=== PATIENT | female | born 1945 | race Caucasian/White ===

== ENCOUNTER → 2016-11-18 | Outpatient (CLI) | payer OTHER | LOC: FIMAGING 15:13 | PROVIDERS: ATTEND Internal Medicine | DX: Z12.31 Encounter for screening mammogram for malignant neoplasm of breast (principal); J47.9 Bronchiectasis, uncomplicated; R91.1 Solitary pulmonary nodule; J43.9 Emphysema, unspecified; Z80.3 Family history of malignant neoplasm of breast | CPT/HCPCS: G0202 ==

== ENCOUNTER 2017-01-13 13:00 | Inpatient (IN) | payer OTHER ==
[2017-01-13 13:36] LABS: % IMMATURE GRANULYOCYTES 0.5 % (0.0-1.1); ABSOLUTE IMMATURE GRANULOCYTES 0.06 10^3/uL (0.00-0.10); ADD DIFF? NO; ADD MORPH? NO; ADD SCAN? NO; ATYPICAL LYMPHOCYTE FLAG 0 (0-99); FRAGMENT RBC FLAG 0 (0-99); HEMATOCRIT 45.6 % (38.0-47.0); HEMOGLOBIN 15.2 g/dL (12.6-16.3); LEFT SHIFT FLG 0 (0-99); LIPEMIA HEMOLYSIS FLAG 80 (0-99); MEAN CELL HEMOGLOBIN 31.3 pg (27.9-34.1); MEAN CELL HEMOGLOBIN CONCENTR. 33.3 g/dL (32.4-36.7); MEAN CELL VOLUME 93.8 fL (81.5-99.8); MEAN PLATELET VOLUME 10.6 fL (8.7-11.7); PLATELET CLUMPS FLAG 10 (0-99); PLATELET COUNT 199 10^3/uL (150-400); RED BLOOD CELL COUNT 4.86 10^6/uL (4.18-5.33); RED CELL DISTRIBUTION WIDTH 13.8 % (11.5-15.2)
[2017-01-13] MEDS ORDERED: NS 1,000 ML IV ONE ×2 (13:38→13:51)
--- NOTE | 2017-01-13 13:48 | EDPHY ---
H & P Stated Complaint: Nausea, vomiting, chills, fever, decreased appetive x 4 days Time Seen by Provider: 01/13/17 13:12 HPI/ROS: CHIEF COMPLAINT: fever HISTORY OF PRESENT ILLNESS: 71-year-old female presents to the emergency department sent from her primary care doctor's office for evaluation for fever, nausea, vomiting, weakness and cough. Patient has a 5 day history of fevers, weakness, nausea, vomiting and cough. Unable to keep any food and fluids down today. Patient also reports diarrhea that started today. She denies any blood in her stool or vomit. Patient denies chest pain or shortness of breath. She reports extreme fatigue. Patient has a history of sarcoidosis. She takes 5 mg of prednisone daily. Patient denies abdominal pain. She denies back pain. No rash. Patient denies urinary frequency, urgency or dysuria. REVIEW OF SYSTEMS: A comprehensive 10 point review of systems is otherwise negative aside from elements mentioned in the history of present illness. Source: Patient, Family Exam Limitations: No limitations - Personal History Current Tetanus/Diphtheria Vaccine: Unsure Current Tetanus Diphtheria and Acellular Pertussis (TDAP): Unsure - Medical/Surgical History Hx Asthma: No Hx Chronic Respiratory Disease: No Hx Diabetes: No Hx Cardiac Disease: No Hx Renal Disease: No Hx Cirrhosis: No Hx Alcoholism: No Hx HIV/AIDS: No Hx Splenectomy or Spleen Trauma: No Other PMH: sarcoidosis. CVA. hypothyroid - Social History Smoking Status: Former smoker - Physical Exam Exam: Physical Exam Gen: Alert and Oriented, pale HEENT: PERRL, dry mucous membranes NECK: no meningismus CV: Tachycardic rate and regular rhythm PULM: Diminished throughout ABDOMEN: soft, non tender to palpation, BS present BACK: No CVA tenderness NEURO: Neurologically grossly intact EXTREMITIES: normal appearing SKIN: No rash, multiple bruises to bilateral upper extremities PSYCH: answers questions appropriately. Constitutional: Initial Vital Signs Temperature (C) 37.2 C 01/13/17 13:03 Heart Rate 103 H 01/13/17 13:03 Respiratory Rate 16 01/13/17 13:03 Blood Pressure 89/52 L 01/13/17 13:03 O2 Sat (%) 85 L 01/13/17 13:03 O2 Delivery Mode Nasal Cannula O2 (L/minute) 2 Allergies/Adverse Reactions: hydroxychloroquine sulfate [From Plaquenil] Allergy (Severe, Verified 05/02/16 10:54) sz Penicillins Allergy (Mild, Verified 05/02/16 10:54) itchy rash Home Medications: Medication Instructions Recorded Clopidogrel Bisulfate [Plavix (*)] 75 mg PO DAILY 05/02/16 Estrogens,Conjugated [Premarin 0.3 0.3 mg PO DAILY 05/02/16 MG (*)] Levothyroxine [Synthroid 88 mcg 88 mcg PO DAILY06 05/02/16 (*)] Rosuvastatin Calcium [Crestor 20mg 20 mg PO DAILY 05/02/16 (*)] predniSONE 5 mg PO 05/02/16 Medical Decision Making - Diagnostics Imaging Results: Imaging Impressions Chest X-Ray 01/13/17 13:43 Impression: Masslike right upper lobe consolidation, new since the comparison, most likely representing pneumonia. Radiographic follow up is recommended to resolution. Findings discussed with Flower Hinds NP on January 13, 2017 at 1430 hours. Imaging: Discussed imaging studies w/ scallop dredger Radiologist ED Course/Re-evaluation: IV established, CBC, chemistry panel, blood cultures, lactic acid, chest x-ray obtained. Patient does not meet sepsis criteria. 2 L of normal saline have been ordered. Chest x-ray shows a right upper lobe pneumonia. Sodium is 129, [place] [id number]. Lactate is normal. Patient is given 1 g of Rocephin IV and 500 mg of azithromycin. She is admitted to the hospitalist for treatment of her pneumonia. Room air oxygen saturations 85%, up to 95 % on 2 liters. Blood pressure up from 89/60 after 1 L of normal saline to 130/62. Temperature up to 37.7. Patient is given 650 mg of Tylenol orally. Differential Diagnosis: The differential diagnosis for the patient's fever included but was not limited to pneumonia, urinary tract infection, viral syndrome, meningitis, and sepsis. - Data Points Laboratory Results: Laboratory Results 01/13/17 13:30 01/13/17 13:30 01/13/17 01/13/17 01/13/17 13:56 13:55 13:55 WBC RBC Hgb Hct MCV MCH MCHC RDW Plt Count MPV Neut % (Auto) Lymph % (Auto) [place] % (Auto) Eos % (Auto) Baso % (Auto) Nucleat RBC Rel Count Absolute Neuts (auto) Absolute Lymphs (auto) Absolute Monos (auto) Absolute Eos (auto) Absolute Basos (auto) Absolute Nucleated RBC Immature Gran % Immature Gran # VBG Lactic Acid Sodium Potassium Chloride Carbon Dioxide Anion Gap BUN Creatinine Estimated GFR Glucose Calcium Total Bilirubin Stool Concentration Cancelled Stool Ova & Parasites Cancelled Parasite Trichrome Cancelled C. difficile Tox (PCR) Cancelled Influenza A & B (PCR) Pending Influenza A,B Rapid Cancelled Group A Strep Screen NEGATIVE (NEGATIVE) Direct Microscop Exam Cancelled 01/13/17 01/13/17 01/13/17 13:30 13:30 13:30 WBC 11.31 10^3/uL H 10^3/uL (3.80-9.50) RBC 4.86 10^6/uL 10^6/uL (4.18-5.33) Hgb 15.2 g/dL g/dL (12.6-16.3) Hct 45.6 % % (38.0-47.0) MCV 93.8 fL fL (81.5-99.8) MCH 31.3 pg pg (27.9-34.1) MCHC 33.3 g/dL g/dL (32.4-36.7) RDW 13.8 % % (11.5-15.2) Plt Count 199 10^3/uL 10^3/uL (150-400) MPV 10.6 fL fL (8.7-11.7) Neut % (Auto) 71.7 % % (39.3-74.2) Lymph % (Auto) 10.5 % L % (15.0-45.0) [place] % (Auto) 16.8 % H % (4.5-13.0) Eos % (Auto) 0.0 % L % (0.6-7.6) Baso % (Auto) 0.5 % % (0.3-1.7) Nucleat RBC Rel Count 0.0 % % (0.0-0.2) Absolute Neuts (auto) 8.10 10^3/uL H 10^3/uL (1.70-6.50) Absolute Lymphs (auto) 1.19 10^3/uL 10^3/uL (1.00-3.00) Absolute Monos (auto) 1.90 10^3/uL H 10^3/uL (0.30-0.80) Absolute Eos (auto) 0.00 10^3/uL L 10^3/uL (0.03-0.40) Absolute Basos (auto) 0.06 10^3/uL 10^3/uL (0.02-0.10) Absolute Nucleated RBC 0.00 10^3/uL 10^3/uL (0-0.01) Immature Gran % 0.5 % % (0.0-1.1) Immature Gran # 0.06 10^3/uL 10^3/uL (0.00-0.10) VBG Lactic Acid 1.0 mmol/L mmol/L (0.7-2.1) Sodium 129 mEq/L L mEq/L (134-144) Potassium 3.6 mEq/L mEq/L (3.5-5.2) Chloride 98 mEq/L mEq/L (97-110) Carbon Dioxide 19 mEq/l L mEq/l (22-31) Anion Gap 12 mEq/L mEq/L (8-16) BUN 22 mg/dL mg/dL (7-23) Creatinine 1.0 mg/dL mg/dL (0.6-1.0) Estimated GFR 55 Glucose 114 mg/dL H mg/dL (70-100) Calcium 9.1 mg/dL mg/dL (8.5-10.4) Total Bilirubin 1.0 mg/dL mg/dL (0.1-1.4) Stool Concentration Stool Ova & Parasites Parasite Trichrome C. difficile Tox (PCR) Influenza A & B (PCR) Influenza A,B Rapid Group A Strep Screen Direct Microscop Exam Medications Given: Sodium Chloride (Ns) 1,000 mls @ 0 mls/hr IV CONT KRISTIAN PRN Reason: TKO Stop: 07/12/17 14:44 Last Admin: 01/13/17 14:54 Dose: 1,000 mls Ceftriaxone Sodium/Dextrose (Rocephin 1 Gm (Premix)) 50 mls @ 100 mls/hr IV EDNOW ONE PRN Reason: Protocol Stop: 01/13/17 15:14 Last Admin: 01/13/17 14:53 Dose: 50 mls Discontinued Medications Acetaminophen (Tylenol) 650 mg PO EDNOW ONE Stop: 01/13/17 14:29 Last Admin: 01/13/17 14:32 Dose: Not Given Sodium Chloride (Ns) 1,000 mls @ 0 mls/hr IV ONCE ONE PRN Reason: Wide Open Stop: 01/13/17 13:39 Last Admin: 01/13/17 13:44 Dose: 1,000 mls Sodium Chloride (Ns) 1,000 mls @ 0 mls/hr IV EDNOW ONE; Wide Open PRN Reason: Protocol Stop: 01/13/17 13:52 Last Admin: 01/13/17 14:11 Dose: 1,000 mls Ondansetron HCl (Zofran) 4 mg IVP EDNOW ONE Stop: 01/13/17 13:56 Last Admin: 01/13/17 14:11 Dose: 4 mg Departure - Departure Disposition: [facility] Acute Clinical Impression: Right upper lobe pneumonia Qualifiers: Pneumonia type: due to unspecified organism Qualified Code(s): J18.1 - Lobar pneumonia, unspecified organism Condition: Fair
[2017-01-13] MEDS ORDERED: ONDANSETRON 4 MG/2 ML VIAL IVP ONE (13:55)
[2017-01-13] MEDS ORDERED: ONDANSETRON 4 MG/2 ML VIAL ONE (13:55)
[2017-01-13 13:57] LABS: CALCIUM 9.1 mg/dL (8.5-10.4); CARBON DIOXIDE 19 mEq/l (22-31); CHLORIDE 98 mEq/L (97-110); GLOMERULAR FILTRATION RATE 55; GLUCOSE 114 mg/dL (70-100); SODIUM 129 mEq/L (134-144)
[2017-01-13 13:57] LABS: INR 1.08 (0.83-1.16); PROTIME(PATIENT) 13.9 SEC (12.0-15.0)
[2017-01-13 13:58] LABS: APTT 31.1 SEC (23.0-38.0)
[2017-01-13 13:59] LABS: ANION GAP 12 mEq/L (8-16); POTASSIUM 3.6 mEq/L (3.5-5.2)
[2017-01-13] MEDS ORDERED: ACETAMINOPHEN 325 MG TAB PO ONE (14:28)
[2017-01-13] MEDS ORDERED: NS 1,000 ML IV SCH (14:45)
[2017-01-13] MEDS ORDERED: AZITHROMYCIN IV 500 MG in D5W 250 ML IV ONE (14:46)
[2017-01-13] MEDS ORDERED: PROMETHAZINE HCL 25 MG TAB PO PRN (16:00)
[2017-01-13] MEDS ORDERED: ONDANSETRON 4 MG/2 ML VIAL IVP PRN (16:00)
[2017-01-13] MEDS ORDERED: ACETAMINOPHEN 325 MG TAB PO PRN (16:00)
[2017-01-13] MEDS ORDERED: ALBUTEROL 3 ML DEYVIAL IH PRN (16:00)
[2017-01-13] MEDS ORDERED: ONDANSETRON DISINTEGRATING 4 MG TAB PO PRN (16:00)
[2017-01-13] MEDS: NS W/ 20 KCl/L 1,000 ML IV SCH (16:39)
[2017-01-13] MEDS: VANCOMYCIN 125 MG/2.5 ML UDL PO SCH ×2 (16:42→19:38)
[2017-01-13] MEDS: predniSONE 5 MG TAB PO SCH (16:42)
--- NOTE | 2017-01-13 17:26 | GHP ---
[f rep st] HISTORY AND PHYSICAL DATE OF ADMISSION: 01/13/2017 CHIEF COMPLAINT: Fever, cough, nausea, vomiting, diarrhea, and weakness. HISTORY OF PRESENT ILLNESS: The patient is a 71-year-old female with history of sarcoid, bronchiectasis, and chronic prednisone use, who presents to the emergency department with 4 days of fever, cough, and diarrhea. Her symptoms started with cough and a sore throat. She then developed shaking chills with a fever as high as 102.5. Soon after, she developed diarrhea up to 3 times per day. She describes this as loose watery stool. There is no blood in the stool. There has been no hematemesis or coffee-ground emesis. She did endorse some mild abdominal cramping, which seemed to be relieved after the diarrhea. Her last episode of diarrhea was this morning and she has gone without an episode for several hours now. She states her abdominal discomfort is completely resolved. Her cough started 4 days ago, has been relatively nonproductive. She denies chest pain. She endorses some vague shortness of breath. There was a sick contact with a friend of hers who had some type of viral illness. She reports decreased oral intake and has become quite weak on the day of presentation. Upon arrival to the emergency department, she is satting 85% on room air. Chest x-ray is consistent with a right middle lobe masslike consolidation. She is given over a liter of normal saline, a dose of ceftriaxone and azithromycin. She is admitted to the hospital for further management. PAST MEDICAL HISTORY: 1. Sarcoid. 2. Chronic prednisone use. 3. Bronchiectasis/emphysema evidenced by CT November 2016. 4. History of tobacco use. She has a 45-[id number]-[id number] history and quit in 2010. 5. History of CVA, on daily Plavix. 6. Hypothyroidism. 7. Menopausal state, on hormone replacement therapy. 8. Obstructive sleep apnea. MEDICATIONS: Please see [facility] for completed outpatient medication list. ALLERGIES: Hydroxychloroquine and penicillin. FAMILY HISTORY: Her mother had type 2 diabetes. SOCIAL HISTORY: The patient lives independently with her , who is a retired physician. He is present at the bedside, along with her son. As above , she has a 45-ijus-isqp tobacco history and quit 7 years ago. She denies alcohol use. REVIEW OF SYSTEMS: A 10-point review of systems was performed and is negative except as per HPI. OBJECTIVE: VITAL SIGNS: Current temperature is 38.6, blood pressure 120/53, heart rate 98, respiratory rate 20, she is 96% on 2 L of oxygen, and is improved from her presenting blood pressure of 89/52, heart rate 103, and oxygen saturation of 85% on room air. GENERAL: The patient is awake, alert and oriented, in no acute distress. HEENT: Head is atraumatic, normocephalic. Pupils equal, round, and reactive to light. Extraocular muscles intact. Oropharynx is clear. Mucous membranes are moist. NECK: Supple. There is no JVD. HEART: Regular rate and rhythm. LUNGS: Decreased air exchange with crackles in the right middle and right lower lobe. No wheezing or rhonchi are noted. ABDOMEN: Soft, nondistended, nontender, with normoactive bowel tones. EXTREMITIES: Without cyanosis, clubbing, or edema. NEUROLOGIC: Grossly nonfocal. LABORATORY DATA: CBC reveals a white count of 11.3 with increased absolute neutrophils of 8.1. INR is 1.08. Lactic acid 1. Basic metabolic panel reveals a sodium of 129, a CO2 of 19, glucose 114, creatinine is normal at 1.0. LFTs are pending. A group A strep was negative. Influenza is pending. Chest x-ray is personally reviewed and interpreted, shows a masslike right upper lobe consolidation, which is new compared to her chest CT from November 2016, most suggestive of pneumonia. ASSESSMENT AND PLAN: The patient is a 71-year-old female with a history of sarcoidosis, bronchiectasis, and chronic prednisone use, who presents to the hospital with fever, cough, and diarrhea. 1. Acute hypoxemia with respiratory failure secondary to right upper lobe pneumonia. Given her structural lung disease and chronic immunosuppression on daily prednisone, I am going to broaden her antibiotic coverage to cefepime. We will continue azithromycin. We will give q.i.d. DuoNeb and wean oxygen as able. She will, at minimum, need a repeat chest x-ray in 4-6 weeks. If her condition is not improving, would consider repeating a chest CT given the masslike presentation of this consolidation on imaging. She does not meet sepsis criteria. I considered aspiration, though she denies any history of this and has not really had recurrent vomiting or choking episodes. 2. Nausea, vomiting, diarrhea. This is diarrhea predominant. Her vomiting just started today and has not persisted. She has had no recent antibiotic use , no recent travel. I initially covered her with oral vancomycin while awaiting results of the GI pathogen panel, but she has had no further diarrhea for 12 hrs, thus will dc oral Vanc and await GI pathogen panel if diarrhea recurs. 3. Hyponatremia. I suspect this is hypovolemic hyponatremia. She has been given normal saline. We will recheck this in the morning and work up further if it is not corrected with saline. 4. Hypothyroidism. We will continue her outpatient levothyroxine. 5. Obstructive sleep apnea. Patient has an appointment with Pulmonology in the outpatient setting to arrange for continuous positive airway pressure therapy. 6. Menopausal state, on hormone replacement therapy. I do note the relative contraindication for oral estrogen after the age of 60. I am going to give her half her normal dose, and if she does well on this could consider continuing the lower dose versus tapering off. I will defer further management to her primary care physician. 7. History of cerebrovascular accident. She has no significant deficits. 8. Generalized weakness. This is likely secondary to volume depletion and her acute illness as above. She will receive IV fluids. Physical therapy/ occupational therapy is requested. 9. Deep venous thrombosis prophylaxis. Lovenox. 10. Code status. Patient is full code. 11. Disposition. Patient is admitted to inpatient status. She will likely require greater than 48 hours hospitalization for ongoing management of her hypoxemia-associated pneumonia and gastrointestinal symptoms. /[id number]/MODL MTDD
[2017-01-13 17:28] LABS: ALANINE AMINOTRANSFERASE 31 IU/L (9-52); ALBUMIN 3.4 g/dL (3.5-5.0); ALKALINE PHOSPHATASE 29 IU/L (38-126); ASPARTATE AMINOTRANSFERASE 23 IU/L (14-46); BILIRUBIN,TOTAL 0.9 mg/dL (0.1-1.4); BILIRUBIN-CONJUGATED 0.3 mg/dL (0.0-0.5); BILIRUBIN-UNCONJUGATED 0.6 mg/dL (0.0-1.1); TOTAL PROTEIN 6.2 g/dL (6.3-8.2)
[2017-01-13 18:44] LABS: COLOR AMBER; LEUKOCYTE ESTERASE,URINE 2+ (NEGATIVE); NITRITE,URINE NEGATIVE (NEGATIVE)
[2017-01-13 18:52] LABS: BACTERIA 4+ /hpf (NONE SEEN); MUCUS 4+ /lpf (NONE-1+)
[2017-01-13] MEDS: IPRATROPIUM/ALBUTEROL 3 ML DEYVIAL IH SCH ×2 (19:12→20:19)
[2017-01-13] MEDS: CEFEPIME HCL 2 GM in D5W 100 ML IV SCH (19:36)
[2017-01-13] MEDS: ESTROGENS,CONJUGATED 0.625 MG TAB PO SCH (19:38)
[2017-01-14] MEDS: ESTROGENS,CONJUGATED 0.625 MG TAB PO SCH ×2 (03:33→20:41)
[2017-01-14] MEDS: NS W/ 20 KCl/L 1,000 ML IV SCH (03:35)
[2017-01-14] MEDS: CEFEPIME HCL 2 GM in D5W 100 ML IV SCH ×3 (03:36→20:30)
[2017-01-14 05:41] LABS: ANION GAP 7 mEq/L (8-16); CALCIUM 8.5 mg/dL (8.5-10.4); CARBON DIOXIDE 18 mEq/l (22-31); CHLORIDE 108 mEq/L (97-110); CREATININE 0.6 mg/dL (0.6-1.0); GLOMERULAR FILTRATION RATE > 60; GLUCOSE 108 mg/dL (70-100); POTASSIUM 4.3 mEq/L (3.5-5.2); SODIUM 133 mEq/L (134-144)
[2017-01-14] MEDS: IPRATROPIUM/ALBUTEROL 3 ML DEYVIAL IH SCH ×4 (05:55→19:59)
[2017-01-14] MEDS ORDERED: LEVOTHYROXINE 75 MCG TAB PO SCH (06:00)
[2017-01-14 06:06] LABS: % IMMATURE GRANULYOCYTES 0.4 % (0.0-1.1); ABSOLUTE IMMATURE GRANULOCYTES 0.03 10^3/uL (0.00-0.10); ADD DIFF? NO; ADD MORPH? NO; ADD SCAN? NO; ATYPICAL LYMPHOCYTE FLAG 0 (0-99); FRAGMENT RBC FLAG 0 (0-99); HEMATOCRIT 39.2 % (38.0-47.0); HEMOGLOBIN 12.7 g/dL (12.6-16.3); LEFT SHIFT FLG 10 (0-99); LIPEMIA HEMOLYSIS FLAG 80 (0-99); MEAN CELL HEMOGLOBIN 31.2 pg (27.9-34.1); MEAN CELL HEMOGLOBIN CONCENTR. 32.4 g/dL (32.4-36.7); MEAN CELL VOLUME 96.3 fL (81.5-99.8); MEAN PLATELET VOLUME 10.5 fL (8.7-11.7); PLATELET CLUMPS FLAG 10 (0-99); PLATELET COUNT 176 10^3/uL (150-400); RED BLOOD CELL COUNT 4.07 10^6/uL (4.18-5.33)
[2017-01-14] MEDS: predniSONE 5 MG TAB PO SCH ×2 (06:28→15:19)
[2017-01-14] MEDS: CLOPIDOGREL BISULFATE 75 MG TAB PO SCH (09:07)
[2017-01-14] MEDS: ENOXAPARIN 40 MG/0.4 ML SYR SC SCH (09:27)
[2017-01-14] MEDS ORDERED: IOPAMIDOL (ISOVUE 370) 100 ML BTL IV ONE (11:10)
--- NOTE | 2017-01-14 14:26 | HOSPPROG ---
Hospitalist Progress Note Assessment/Plan: This is a 71-year-old female with history of sarcoidosis, bronchiectasis, and chronic prednisone use Assessment # acute hypoxemic respiratory failure secondary a right upper lobe pneumonia # nausea vomiting diarrhea # hyponatremia # hypothyroidism with suppressed TSH # obstructive sleep apnea # menopausal state # generalized weakness Plan: -continue cefepime and azithromycin -check Legionella urine antigen -await stool pathogen panel -will decrease levothyroxine to 25 mcg and recommend repeat TSH in 4-6 weeks Disposition: Continue inpatient care Subjective: feels better today without fevers or chills. Continues to have some shortness of breath and coughing. He has not had any more diarrhea since being in the hospital. She has not had anything to eat though either. Still feels very weak. Objective: Vital Signs Temp Pulse Resp BP Pulse Ox 37.0 C 99 18 136/64 H 97 01/14/17 13:30 01/14/17 13:30 01/14/17 13:30 01/14/17 13:30 01/14/17 13:30 Laboratory Results 01/14/17 05:02 01/14/17 05:02 01/13/17 01/14/17 01/15/17 05:59 05:59 05:59 Intake Total 400 1200 Output Total 1400 250 Balance -1000 950 PT 13.9 SEC (12.0-15.0) 01/13/17 Unknown INR 1.08 (0.83-1.16) 01/13/17 Unknown - Physical Exam Constitutional: no apparent distress, appears nourished, not in pain Cardiovascular: regular rate and rhythym, no murmur, rub, or gallop Respiratory: no respiratory distress, no rales or rhonchi, clear to auscultation , reduced air movement Gastrointestinal: normoactive bowel sounds, soft, non-tender abdomen, no palpable masses Neurologic: AAOx3, sensation intact bilaterally ICD10 Worksheet Patient Problems: Problems Problem Status Onset chronic disease mgmt/transitional care Acute Right upper lobe pneumonia Acute
[2017-01-14] MEDS ORDERED: AZITHROMYCIN IV 500 MG in D5W 250 ML IV SCH (15:00)
--- NOTE | 2017-01-14 15:05 | ASMTCMCOM ---
CM Note CM Note Notes: Patient admitted with Pneumonia but tested negative for flu. Pt on IV antibiotics and oxygen. Still unknown what pt s needs will be on discharge but most likely will discharge home with family.Case management will follow. Date Signed: 01/14/2017 03:04 PM Electronically Signed By:CORINNA Auguste
[2017-01-14] MEDS: ROSUVASTATIN CALCIUM 10 MG TAB PO SCH (20:41)
[2017-01-15] MEDS: LEVOTHYROXINE 25 MCG TAB PO SCH (04:57)
[2017-01-15] MEDS: CEFEPIME HCL 2 GM in D5W 100 ML IV SCH ×2 (04:57→16:41)
[2017-01-15] MEDS: predniSONE 5 MG TAB PO SCH ×2 (05:04→15:42)
[2017-01-15] MEDS: IPRATROPIUM/ALBUTEROL 3 ML DEYVIAL IH SCH ×3 (05:43→15:09)
[2017-01-15] MEDS: CLOPIDOGREL BISULFATE 75 MG TAB PO SCH (10:18)
[2017-01-15] MEDS: ENOXAPARIN 40 MG/0.4 ML SYR SC SCH (10:21)
--- NOTE | 2017-01-15 14:09 | HOSPPROG ---
Hospitalist Progress Note Assessment/Plan: This is a 71-year-old female with history of sarcoidosis, bronchiectasis, and chronic prednisone use Assessment # acute hypoxemic respiratory failure secondary a right upper lobe pneumonia # nausea vomiting diarrhea (improving) # hyponatremia # hypothyroidism with suppressed TSH # obstructive sleep apnea # menopausal state # generalized weakness with tremor # history of CVA and known carotid artery stenosis with evidence for atherosclerosis on CT angio of the chest Plan: -will DC cefepime and azithromycin and Start monotherapy with oral levofloxacin (patient was concerned that the cefepime it may be causing her tremor) - Legionella urine antigen pending -await stool pathogen panel -continue levothyroxine 25 mcg and recommend repeat TSH in 4-6 weeks -will need outpatient follow-up with either her primary care provider a neurologist at which time she should have repeat imaging of her carotids with a CT angio of the neck with comparison of a previous study that was done in [place]. -hold albuterol since this may be worsening her tremor as well. Will start Mucinex. -repeat labs in a.m. Disposition: Continue inpatient care Subjective: No fevers or chills. No diarrhea. She feels very shaky and weak. Objective: Vital Signs Temp Pulse Resp BP Pulse Ox 36.8 C 88 16 128/67 H 93 01/15/17 12:00 01/15/17 12:00 01/15/17 12:00 01/15/17 12:00 01/15/17 12:00 Laboratory Results 01/14/17 05:02 01/14/17 05:02 01/14/17 01/15/17 01/16/17 05:59 05:59 05:59 Intake Total 400 2822 Output Total 1400 1750 400 Balance -1000 1072 -400 PT 13.9 SEC (12.0-15.0) 01/13/17 Unknown INR 1.08 (0.83-1.16) 01/13/17 Unknown - Physical Exam Constitutional: no apparent distress, appears nourished, not in pain Cardiovascular: regular rate and rhythym, no murmur, rub, or gallop Respiratory: no respiratory distress, no rales or rhonchi, clear to auscultation Gastrointestinal: normoactive bowel sounds, soft, non-tender abdomen, no palpable masses Neurologic: AAOx3, sensation intact bilaterally, other (Slight tremor) ICD10 Worksheet Patient Problems: Problems Problem Status Onset chronic disease mgmt/transitional care Acute Right upper lobe pneumonia Acute
--- NOTE | 2017-01-15 15:22 | ASMTCMCOM ---
CM Note CM Note Notes: Pt refused PT/OT today and per PT lacks motivation to participate. PT initially cleared pt however per reports, pt is weak and would benefit from continued therapy. D/c plan is still unclear. CM will continue to follow. Date Signed: 01/15/2017 03:22 PM Electronically Signed By:WILFREDO Vo
[2017-01-15] MEDS: guaiFENesin 600 MG TAB.ER PO SCH ×2 (15:42→20:34)
[2017-01-15] MEDS: ROSUVASTATIN CALCIUM 10 MG TAB PO SCH (20:31)
[2017-01-15] MEDS: ESTROGENS,CONJUGATED 0.625 MG TAB PO SCH (20:36)
[2017-01-16 05:21] LABS: % IMMATURE GRANULYOCYTES 0.4 % (0.0-1.1); ABSOLUTE IMMATURE GRANULOCYTES 0.02 10^3/uL (0.00-0.10); ADD DIFF? NO; ADD MORPH? NO; ADD SCAN? NO; ATYPICAL LYMPHOCYTE FLAG 30 (0-99); FRAGMENT RBC FLAG 0 (0-99); HEMATOCRIT 35.5 % (38.0-47.0); HEMOGLOBIN 11.7 g/dL (12.6-16.3); LEFT SHIFT FLG 0 (0-99); LIPEMIA HEMOLYSIS FLAG 80 (0-99); MEAN CELL HEMOGLOBIN 31.3 pg (27.9-34.1); MEAN CELL VOLUME 94.9 fL (81.5-99.8); MEAN PLATELET VOLUME 10.1 fL (8.7-11.7); PLATELET CLUMPS FLAG 10 (0-99); PLATELET COUNT 211 10^3/uL (150-400); RED BLOOD CELL COUNT 3.74 10^6/uL (4.18-5.33); RED CELL DISTRIBUTION WIDTH 13.5 % (11.5-15.2)
[2017-01-16 05:22] LABS: ANION GAP 8 mEq/L (8-16); CALCIUM 8.9 mg/dL (8.5-10.4); CARBON DIOXIDE 22 mEq/l (22-31); CHLORIDE 107 mEq/L (97-110); CREATININE 0.6 mg/dL (0.6-1.0); GLOMERULAR FILTRATION RATE > 60; GLUCOSE 85 mg/dL (70-100); SODIUM 137 mEq/L (134-144)
[2017-01-16] MEDS: LEVOTHYROXINE 25 MCG TAB PO SCH (06:06)
[2017-01-16] MEDS: predniSONE 5 MG TAB PO SCH (06:06)
[2017-01-16] MEDS: guaiFENesin 600 MG TAB.ER PO SCH (09:51)
[2017-01-16] MEDS: CLOPIDOGREL BISULFATE 75 MG TAB PO SCH (09:51)
[2017-01-16] MEDS: ENOXAPARIN 40 MG/0.4 ML SYR SC SCH (09:53)
[2017-01-16 11:07] VITALS: BP 141/69; PULSE 87; RESP 15; O2SAT 94
[2017-01-16 11:11] VITALS: TEMP 97.8
--- NOTE | 2017-01-16 14:57 | GDS ---
[f rep st] DISCHARGE SUMMARY DISCHARGE DIAGNOSES: 1. Acute hypoxemic respiratory failure secondary to pneumonia. 2. Right upper lobe pneumonia. 3. Nausea, vomiting, diarrhea, resolved. 4. Hyponatremia resolved. 5. Hypothyroidism with suppressed TSH. 6. Menopausal state on estrogen therapy. 7. History of cerebrovascular accident. 8. Bronchiectasis. 9. Sarcoid, on chronic immunosuppression with daily prednisone. CONSULTANTS: None. IMAGING STUDIES/PROCEDURES: 1. Chest x-ray January 13 showed a masslike right upper lobe rounded consolidation, most likely re presenting pneumonia. 2. CT pulmonary angiogram January 14 confirmed a moderate consolidation/pneumonia in the right upp er lobe anterior medially with stable fibrotic change in the right middle lobe inferiorly as well as moderate atherosclerosis and calcified plaque at the aortic arch level with moderate to severe plaque at the origin of the left common carotid artery and stenosis measuring 65% to 75%. HISTORY: For details, please see dictated history physical dated January 13, 2017. In brief, the patient is a 71-year-old female with history of sarcoid and chronic prednisone use as well as bronchi ectasis who presented to the emergency department with fevers, chills, cough, sore throat, and GI sym ptoms. Workup was consistent with pneumonia and she was admitted to the hospital for further managem ent. HOSPITAL COURSE: The patient was admitted to the medical-surgical unit given her structural lung dis ease and chronic immunosuppression. She was treated with cefepime and azithromycin as well as nebuli zers and supplemental oxygen. Her oxygen was weaned down to 2 L/minute, but she will require ongoing home oxygen, which is being arranged. After 2 days on the cefepime, she complained of tremor that s he thought was secondary to the cefepime. Thus, she was transitioned to oral Levaquin. She will con tinue a course of this as an outpatient. I suspect she initially developed a viral illness with her nausea, vomiting, diarrhea, and given her immunosuppression, went on to develop a secondary bacterial infection in the form of pneumonia as above. She did have a negative GI pathogen panel and her GI s ymptoms are completely resolved at the time of discharge. Also of note, her Premarin dose was decrea sed from 0.625 to 0.3125 at discharge. Given her history of stroke and age, I have recommended she f ollow up with her primary care physician to determine if she should continue to wean or maintain the lower dose, which she seems to be tolerating well. Also, she needs a followup CT angiogram of her ne ck given the findings on the CT above with her history of prior stroke. I have referred her to a mattie rologist to discuss this and have followup imaging which should be compared to previous CTA of her ne ck performed in [place]. She will continue her Plavix at discharge. DISPOSITION: Patient is discharged home in stable condition. DISCHARGE MEDICATIONS: Please see [facility] for complete updated outpatient medication list. New medications at discharge include levofloxacin 750 mg p.o. daily for 3 more days. Changed medications: 1. Levothyroxine 25 p.o. daily is changed from 75 mcg given her undetectable TSH. She wi ll need a repeat TSH in 4-6 weeks. 2. Premarin dose is decreased from 0.625 to 0.3125. FOLLOWUP: 1. Primary care provider to discuss ongoing estrogen therapy as well as repeat TSH in 4 to 6 weeks a nd lower Synthroid dose. 2. Dr. Bryan Zurita, neurology, for followup CT of her neck and discuss history of stroke. 3. Dr. Keon Fragoso, pulmonology, to recheck her oxygen levels. She will also need a followup chest x-ray or chest CT in 4 to 6 weeks to ensure resolution of this right upper lobe consolidation. /[id number]/MODL
--- NOTE | 2017-01-17 12:21 | ASDISCHSUM ---
Discharge Information Plan Status:Home with No Needs Medically Cleared to Leave: Discharge Date:01/16/2017 01:55 PM CM D/C Disposition: ADT D/C Disposition:Home, Routine, Self-Care Projected Discharge Date:01/16/2017 01:55 PM Transportation at D/C: Discharge Delay Reason: Follow-Up Date:01/16/2017 01:55 PM Discharge Slot: Final Diagnosis: Placement Information Patient Contact Information Contact Name:MAIA Relationship:Arnold Address:[address] City:[place] Alternate Phone: [facility]/Zip Code:[place] [address] Email: Financial Information Financial Class: Primary Plan Desc:MEDICARE INPATIENT Primary Plan Number:[id number] Secondary Plan Desc:[facility] Secondary Plan Number:[id number] Assessment Information [facility] CM Progress Note CM Note CM Note Notes: Patient admitted with Pneumonia but tested negative for flu. Pt on IV antibiotics and oxygen. Still unknown what pt s needs will be on discharge but most likely will discharge home with family.Case management will follow. Date Signed: 01/14/2017 03:04 PM Electronically Signed By:WILFREDO Auguste [facility] CM Progress Note CM Note CM Note Notes: Pt refused PT/OT today and per PT lacks motivation to participate. PT initially cleared pt however per reports, pt is weak and would benefit from continued therapy. D/c plan is still unclear. CM will continue to follow. Date Signed: 01/15/2017 03:22 PM Electronically Signed By:WILFREDO Vo [facility] CM Progress Note CM Note CM Note Notes: Pt DC''d with no needs. Date Signed: 01/17/2017 12:20 PM Electronically Signed By:Karina Sánchez LCSW Intervention Information Intervention Type:*IM-Signed Date of Service:01/16/2017 11:30 AM Patient Type:Inpatient Staff Member:Stormy Harris Hours: Discipline: Severity: Comment:
== END 2017-01-16 13:55 | disposition home or self-care (01) | DRG 193 ==
LOC: F1N 15:42
PROVIDERS: ADMIT Hospitalist; ATTEND Hospitalist
DX: J18.1 Lobar pneumonia, unspecified organism (principal); J96.01 Acute respiratory failure with hypoxia; E87.1 Hypo-osmolality and hyponatremia; E03.9 Hypothyroidism, unspecified; J47.9 Bronchiectasis, uncomplicated; D86.9 Sarcoidosis, unspecified; I70.0 Atherosclerosis of aorta; I65.22 Occlusion and stenosis of left carotid artery; G47.33 Obstructive sleep apnea (adult) (pediatric); Z78.0 Asymptomatic menopausal state; Z86.73 Personal history of transient ischemic attack (TIA), and cerebral infarction without residual deficits
CPT/HCPCS: 87449-90; 96365; 97116-GP; 97161-GP; 97165-GO; G8978-GP-CJ; G8979-GP-CI; G8980-GP-CI; G8984-GO-CJ; G8985-GO-CI; J0456; J0692; J0696; J2405; Q9967

== ENCOUNTER 2017-07-02 10:23 | Inpatient (IN) | payer OTHER, MEDICARE ==
--- NOTE | 2017-07-02 10:41 | EDPHY ---
HPI/HX/ROS/PE/MDM Narrative: CHIEF COMPLAINT: Symptoms consistent with prior stroke. HPI: Anticoagulated (Plavix) 71 year old female with history of CVA presents follow an episode of word-finding difficulty and reading difficulty this morning. She had a stroke two years ago and states she currently "Feels very much like when I had a stroke before.". Last night and this morning upon waking at 8:00am, she felt well. Shortly after waking, she noticed she was slowly not able to read or differentiate between words. Additionally, she found it difficult to remember words when speaking. She felt very sleepy and "out of it". Currently these symptoms are largely resolved. She is concerned as the symptoms were so similar to her prior stroke. She does note that she has some resultant deficits from that event including occasional word-finding difficulty. She has not followed up with a neurologist since moving to [place] in the last year. No fever, recent trauma, or further complaints. REVIEW OF SYSTEMS: Aside from elements discussed in the HPI, a comprehensive 10-point review of systems was reviewed and is negative. PMH: CVA. SOCIAL HISTORY: Daughter at bedside. Recently moved to [place] from [place]. PCP. Dr. Miranda. PHYSICAL EXAM: General:Patient is alert, in no acute distress. ENT:Eyes are normal to inspection. ENT inspection normal. Neck: Normal inspection. Full range of motion. Respiratory:No respiratory distress. Breath sounds normal bilaterally. Cardiovascular: Regular rate and rhythm. Strong peripheral pulses. Normal cap refill. Abdomen:The abdomen is nontender to palpation. There are no peritoneal signs. There are normal bowel sounds. Back: Normal to inspection. No tenderness to palpation. Skin: Normal color. No rash. Warm and dry. Extremities: Normal appearance. Full range of motion. Neuro: Oriented x3. Able to read fluently and follow a written command. Mildly positive left sided pronator drift. No speech difficulty at this time. ED Course: 10:35 Met patient on arrival. 71 year old female with history of CVA presents following an episode of reading and word-finding difficulty beginning shortly after 8:00am, 2.5 hours prior to arrival. Currently. the patient is able to read fluently and follow a written command. She has mildly positive left sided pronator drift and began shaking during this test. Plan to consult with [facility]. EKG was ordered and interpreted by myself. Please see [employer] system for official reading. Sinus rhythm. LVH. 10:38 Paged [facility]. 10:[address] Terrazas, neurologist. Recommended CT head, CTA head/ neck. She does not see a necessity to call a stroke alert at this time. 11:[address] Resendiz, radiologist. 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 11:[address] Terrazas. Plan for MRI brain and MRA neck. She will evaluate the patient by telemedicine. 12:[address] Terrazas. She recommends admission, MRI. No heparin drip at this time. 12:07 Spoke with hospitalist service. Dr. Ferraro accepts admission. MDM: This patient presents with symptoms consistent with TIA. She is not a candidate for tPA based on resolving symptoms and lack of infarct on MRI. Her CT and MRI were intially reported to me as positive only for vertebral a dissection, and were later amended to include severe stenosis of carotid origin. Regardless, she requires admission for workup and likely surgical intervention. - Data Points Imaging Results: Imaging Impressions Head CT 07/02/17 10:46 Impression: 1. Mild atrophy. 2. No acute hemorrhage, hydrocephalus, or mass effect. 3. Cerebrovascular atherosclerosis. 4. No definite acute infarct. 5. Mild microvascular ischemic gliosis. 6. Old posttraumatic encephalomalacia versus old infarct inferolateral left frontal lobe. 7. Consider MRI of the brain, if there is continued clinical concern. Findings and recommendations discussed with Emergency Department physician, Cristobal Preston MD at 1144 hour, 07/02/2017. Final report concurs with initial preliminary interpretation. Head CTA 07/02/17 10:46 Impression: 1. Severe atherosclerotic stenosis of the origin of the left common carotid artery, greater than 90% stenosis at the aortic arch level. Recommend Consult for possible bypass surgery, angioplasty, or stenting. 2. Near complete occlusion of the majority of the left vertebral artery of indeterminate age either from acute versus chronic dissection or acute versus chronic atherosclerotic stenosis. 3. Mild atherosclerotic disease bilateral carotid bulbs and proximal internal carotid arteries without flow-limiting stenosis. 4. Patent right vertebrobasilar system without right vertebral dissection or flow-limiting stenosis. 5. Consider consult for possible stenting or bypass of the left common carotid artery severe stenosis at the origin. Measurement of carotid stenosis is based on the residual internal carotid diameter with [place] Symptomatic Carotid Endarterectomy Trial (NASCET) based stenosis levels. CT Angiography of the Brain Clinical Indications: Word finding difficulties, unable to read. Technique: CT angiogram of the brain and neck was performed with the uneventful intravenous administration of 85 mL Isovue-370 contrast. Multiplanar reconstructions including 3D reconstructions performed and evaluated on [employer] workstation in order to better evaluate the [place] vessels. Images were manipulated by the radiologist at the computer workstation. Dose reduction techniques were utilized. Findings: Major vessels of the [place] are adequately displayed, demonstrating moderate atherosclerotic plaque bilateral cavernous and supraclinoid internal carotid arteries without complete occlusion or significant stenosis. Very small distal left vertebral artery with a dominant patent right vertebral artery and basilar artery. Evidence of aneurysm, vascular malformation, flow-limiting stenosis, or occlusion. Bilateral cavernous internal carotid arteries and vertebrobasilar system demonstrates no evidence of flow-limiting stenosis, aneurysm, occlusion, or dissection. Superior sagittal sinus, transverse sinuses, and major veins demonstrate no evidence of intraluminal thrombi. Impression: 1. Cerebrovascular atherosclerosis bilateral cavernous internal carotid arteries. 2. Dominant right vertebral artery with minimal flow in the distal left vertebral artery. 3. Patent basilar artery. 4. No definite vascular malformation or intraluminal thrombi within the [place] vessels. Findings and recommendations discussed with Emergency Department physician, Cristobal Preston MD at 1144 hour, 07/02/2017. Additional finding of severe stenosis of the origin of the left common carotid artery was given to Dr. Preston at 1205 hours. Neck CTA 07/02/17 10:46 Impression: 1. Severe atherosclerotic stenosis of the origin of the left common carotid artery, greater than 90% stenosis at the aortic arch level. Recommend Consult for possible bypass surgery, angioplasty, or stenting. 2. Near complete occlusion of the majority of the left vertebral artery of indeterminate age either from acute versus chronic dissection or acute versus chronic atherosclerotic stenosis. 3. Mild atherosclerotic disease bilateral carotid bulbs and proximal internal carotid arteries without flow-limiting stenosis. 4. Patent right vertebrobasilar system without right vertebral dissection or flow-limiting stenosis. 5. Consider consult for possible stenting or bypass of the left common carotid artery severe stenosis at the origin. Measurement of carotid stenosis is based on the residual internal carotid diameter with [place] Symptomatic Carotid Endarterectomy Trial (NASCET) based stenosis levels. CT Angiography of the Brain Clinical Indications: Word finding difficulties, unable to read. Technique: CT angiogram of the brain and neck was performed with the uneventful intravenous administration of 85 mL Isovue-370 contrast. Multiplanar reconstructions including 3D reconstructions performed and evaluated on [employer] workstation in order to better evaluate the [place] vessels. Images were manipulated by the radiologist at the computer workstation. Dose reduction techniques were utilized. Findings: Major vessels of the [place] are adequately displayed, demonstrating moderate atherosclerotic plaque bilateral cavernous and supraclinoid internal carotid arteries without complete occlusion or significant stenosis. Very small distal left vertebral artery with a dominant patent right vertebral artery and basilar artery. Evidence of aneurysm, vascular malformation, flow-limiting stenosis, or occlusion. Bilateral cavernous internal carotid arteries and vertebrobasilar system demonstrates no evidence of flow-limiting stenosis, aneurysm, occlusion, or dissection. Superior sagittal sinus, transverse sinuses, and major veins demonstrate no evidence of intraluminal thrombi. Impression: 1. Cerebrovascular atherosclerosis bilateral cavernous internal carotid arteries. 2. Dominant right vertebral artery with minimal flow in the distal left vertebral artery. 3. Patent basilar artery. 4. No definite vascular malformation or intraluminal thrombi within the [place] vessels. Findings and recommendations discussed with Emergency Department physician, Cristobal Preston MD at 1144 hour, 07/02/2017. Additional finding of severe stenosis of the origin of the left common carotid artery was given to Dr. Preston at 1205 hours. Imaging: Discussed imaging studies w/ athletics director Radiologist Laboratory Results: Laboratory Results 07/02/17 10:50 07/02/17 10:50 07/02/17 07/02/17 10:50 10:50 WBC 6.80 10^3/uL 10^3/uL (3.80-9.50) RBC 4.69 10^6/uL 10^6/uL (4.18-5.33) Hgb 15.5 g/dL g/dL (12.6-16.3) Hct 44.6 % % (38.0-47.0) MCV 95.1 fL fL (81.5-99.8) MCH 33.0 pg pg (27.9-34.1) MCHC 34.8 g/dL g/dL (32.4-36.7) RDW 13.6 % % (11.5-15.2) Plt Count 193 10^3/uL 10^3/uL (150-400) MPV 11.7 fL fL (8.7-11.7) Neut % (Auto) 73.4 % % (39.3-74.2) Lymph % (Auto) 14.4 % L % (15.0-45.0) Boyd % (Auto) 10.9 % % (4.5-13.0) Eos % (Auto) 0.3 % L % (0.6-7.6) Baso % (Auto) 0.4 % % (0.3-1.7) Nucleat RBC Rel Count 0.0 % % (0.0-0.2) Absolute Neuts (auto) 4.99 10^3/uL 10^3/uL (1.70-6.50) Absolute Lymphs (auto) 0.98 10^3/uL L 10^3/uL (1.00-3.00) Absolute Monos (auto) 0.74 10^3/uL 10^3/uL (0.30-0.80) Absolute Eos (auto) 0.02 10^3/uL L 10^3/uL (0.03-0.40) Absolute Basos (auto) 0.03 10^3/uL 10^3/uL (0.02-0.10) Absolute Nucleated RBC 0.00 10^3/uL 10^3/uL (0-0.01) Immature Gran % 0.6 % % (0.0-1.1) Immature Gran # 0.04 10^3/uL 10^3/uL (0.00-0.10) Sodium 140 mEq/L mEq/L (135-145) Potassium 3.9 mEq/L mEq/L (3.5-5.2) Chloride 107 mEq/L mEq/L (97-110) Carbon Dioxide 23 mEq/l mEq/l (22-31) Anion Gap 10 mEq/L mEq/L (8-16) BUN 33 mg/dL H mg/dL (7-23) Creatinine 0.7 mg/dL mg/dL (0.6-1.0) Estimated GFR > 60 Glucose 102 mg/dL H mg/dL (70-100) Calcium 10.3 mg/dL mg/dL (8.5-10.4) Troponin I < 0.012 ng/mL ng/mL (0.000-0.034) Medications Given: Discontinued Medications Labetalol HCl (Trandate Injection) 10 mg IVP EDNOW ONE Stop: 07/02/17 11:34 Last Admin: 07/02/17 11:44 Dose: 100 mg General Time Seen by Provider: 07/02/17 10:30 Initial Vital Signs: Initial Vital Signs Temperature (C) 36.4 C 07/02/17 10:24 Heart Rate 94 07/02/17 10:24 Respiratory Rate 18 07/02/17 10:24 Blood Pressure 199/109 H 07/02/17 10:24 O2 Sat (%) 93 07/02/17 10:24 O2 Delivery Mode Room Air Allergies/Adverse Reactions: hydroxychloroquine sulfate [From Plaquenil] Allergy (Severe, Verified 07/02/17 10:24) sz Penicillins Allergy (Mild, Verified 07/02/17 10:24) itchy rash Home Medications: Medication Instructions Recorded Clopidogrel Bisulfate [Plavix (*)] 75 mg PO DAILY 05/02/16 Multivitamins [Multivitamin (*)] 1 each PO HS 01/13/17 Rosuvastatin Calcium [Crestor 5mg] 5 mg PO HS 01/13/17 predniSONE 5 mg PO BID 01/13/17 Azithromycin 250 mg PO Q2D@21 07/02/17 Calcium Carbonate [Oyster Shell 500 mg PO DAILY 07/02/17 Calcium 500 mg (*)] Estrogens,Conjugated [Premarin 0.625 mg PO HS 07/02/17 0.625 MG (*)] Levothyroxine [Synthroid 25 mcg 25 mcg PO DAILY06 07/02/17 (*)] Departure - Departure Disposition: [facility] Inpatient Acute Clinical Impression: Vertebral artery dissection Condition: Fair Report Scribed for: Cristobal Preston Report Scribed by: Tish Cuellar Date of Report: 07/02/17 Time of Report: 10:44 Physician Review and Approval Statement: Portions of this note were transcribed by an ED scribe. I personally performed the history, physical exam, and medical decision making; and confirm the accuracy of the information in the transcribed note.
[2017-07-02] MEDS ORDERED: IOPAMIDOL (ISOVUE 370) 100 ML BTL IV ONE (10:58)
--- NOTE | 2017-07-02 11:01 | CPEKG ---
Heart Rate: 77 RR Interval: 779 P-R Interval: 136 QRSD Interval: 84 QT Interval: 396 QTC Interval: 449 P Amasa: 64 QRS Amasa: 12 T Wave Amasa: 10 EKG Severity - ABNORMAL ECG - EKG Impression: SINUS RHYTHM EKG Impression: LEFT VENTRICULAR HYPERTROPHY Electronically Signed By: Cristobal Preston 02-Jul-2017 15:07:40
[2017-07-02 11:08] LABS: PLATELET COUNT 193 10^3/uL (150-400)
[2017-07-02] MEDS ORDERED: LABETALOL HCL 5 MG/ML 20 ML MDV IVP ONE (11:33)
--- NOTE | 2017-07-02 12:21 | ASMTLACE ---
SHARRON Acuity / Level of Answers: Yes Care: Did the patient have an inpatient admission? Comorbidities - select Answers: Cerebrovascular disease all that apply (CVA, TIA, aneurysms, vasc ular dementia) # of Emergency department Answers: 1-2 visits in the last 6 months Score: 5 Date Signed: 07/02/2017 12:20 PM Electronically Signed By:Fabienne Evans RN
[2017-07-02] MEDS ORDERED: GADOBUTROL 10 ML VIAL IVP ONE (12:28)
[2017-07-02] MEDS ORDERED: NS 1,000 ML IV SCH (13:45)
[2017-07-02] MEDS ORDERED: HEPARIN 10,000 UNIT/10 ML MDV (1,000 UNIT/ML) IVP PRN (18:35)
[2017-07-02] MEDS ORDERED: HEPARIN 10,000 UNIT/10 ML MDV (1,000 UNIT/ML) IVP ONE (18:35)
--- NOTE | 2017-07-02 18:44 | PDGENHP ---
History and Physical History and Physical: CC: Difficulty speaking and reading HISTORY: This patient who had a stroke 2 years ago that involved both expressive aphasia and difficulty understanding language largely resolved comes in today after an episode of symptoms that was very similar to her previous episode. 2 years ago she had a stroke that caused expressive aphasia and language comprehension issues. The symptoms from that stroke have resolved very close to completely. At that time she was noted to have occlusion of her left vertebral artery and also some atherosclerosis of the left carotid at the takeoff. She has done quite well since then. She does take Crestor at 5 mg Plavix daily. This morning she woke up feeling okay but subsequently was looking something up on her smart phone and had difficulty understanding words. At that point when she started to try and talk she was having difficulty getting her words out in the way of word-finding difficulty and sense construction. The symptoms did resolve spontaneously. She denies any headache , visual symptoms, motor or sensory symptoms, vertigo or balance problems. There has been no angina or other chest discomfort, palpitations, shortness of breath, fever symptoms, diaphoresis, head injuries. Prior to this episode today she has been feeling quite well recently. She does mention that she had a fall a few days ago that was mechanical and bumped her left lower leg and got a fairly large bruise on that leg that is getting better. She does mention that she has sleep apnea, primarily central but with an obstructive component. She is working with practitioners who are considering whether to try V Pap or other measures. She currently uses 2 L of oxygen at home during sleep but her who is a physician notices that she does get hypoxic during sleep. 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 He just flew in from [facility] to be with her right now, where he was doing some work. She is a former smoker but quit some years ago. She does not use significant alcohol MEDICATIONS: The patients list has been reconciled by our clinical pharmacist in the EMR. I have reviewed the list and ordered appropriate medicines. PHYSICAL EXAMINATION: Vital Signs: Initially quite hypertensive in the ER but her blood pressure now down to 150/73 without medication. 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 There is no acute stroke. She has evidence of 2 old strokes 1 in the left posterior frontal area and a small right cerebellar lesion. There is no evidence of hemorrhage or tumor. She has a complete occlusion of the left vertebral artery which was noted on studies 2 years ago from her prior stroke. She has 90% occlusion of the left common carotid at its takeoff. Her tells me that she did have a some atherosclerosis with stenosis at that same location 2 years ago, but he does not recall the severity, believes that was less than the 90% we see now. 12 LEAD EKG: I reviewed the tracing from the ER study and this shows a sinus rhythm with no ischemia or other concerning changes ASSESSMENT: 1- acute TIA with expressive aphasia and reading comprehension symptoms, mimicking quite closely the symptoms of her previous stroke from 2 years ago from which she had nearly completely recovered. 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, with a chronic total occlusion of the left vertebral artery 3- current use of Crestor and Plavix daily at home 4- severe hypertension at presentation to the ER is likely caused by her episode today, blood pressure much improved at this time 5- sleep apnea, probably not optimally treated at this time, and needing ongoing evaluation and management 6- chronic bronchiectasis and sarcoid disease, all stable at present I believe her episode today was related to her severe cerebrovascular disease. It could be that she had something that temporarily lowered blood pressure, such as some dehydration (she does have an elevated BUN) with perhaps some type of fast or slow heart rhythm. She is not diabetic and I do not suspect hypoglycemia. It is also possible that this was a typical thrombotic TIA. She is however on Plavix and Crestor at this time. Her severe carotid disease particularly with occlusion of the left vertebral basilar vessel leaves her at very high risk for further stroke. At this time she will clearly need to be admitted to the hospital and watched very carefully. An intervention for her vascular disease seems indicated PLANS: Inpatient admission hospital Careful management of her blood pressure Continue her statin and recheck lipids Continue her current Plavix I will start a heparin drip, weight based at present I will contact Dr. Seng Rock from vascular surgery and Dr. Calvo from Interventional Radiology to review her films and her story so that we can come to the best recommendations for further management. I reviewed all the above in detail with the patient and her and answered their questions at this time. I will attempt to get records from [place] where she had her previous vascular studies 2 years ago Will treat her sleep apnea here with oxygen but will have respiratory therapy follow her and see if it seems appropriate to intervene with other therapies while she is here. She should continue her outpatient assessments and management of her sleep apnea which is ongoing I have reviewed the patient's case in detail with Dr. Preston I have reviewed the patient's past medical records as part of this assessment, including previous hospitalization records
[2017-07-02 20:22] LABS: PLATELET COUNT 176 10^3/uL (150-400)
[2017-07-02 20:30] LABS: INR 1.02 (0.83-1.16); PROTIME(PATIENT) 13.6 SEC (12.0-15.0)
[2017-07-02] MEDS: predniSONE 5 MG TAB PO SCH (20:52)
[2017-07-02] MEDS: ROSUVASTATIN CALCIUM 10 MG TAB PO SCH (20:52)
[2017-07-02] MEDS: HEPARIN/DEXTROSE 500 ML IV SCH (20:53)
[2017-07-02] MEDS: MULTIVITAMINS 1 EACH TAB PO SCH (20:53)
[2017-07-02] MEDS ORDERED: NON-FORMULARY NEW DRUG (Rosuvastatin Calcium [Crestor 5mg] 5 MG) PO SCH (21:00)
[2017-07-03] MEDS: LEVOTHYROXINE 25 MCG TAB PO SCH (06:39)
[2017-07-03] MEDS: CALCIUM CARBONATE 500 MG TAB PO SCH (08:47)
[2017-07-03] MEDS: predniSONE 5 MG TAB PO SCH ×2 (08:47→20:20)
--- NOTE | 2017-07-03 09:01 | HOSPPROG ---
Hospitalist Progress Note Assessment/Plan: DIAGNOSES: 1- acute TIA with expressive aphasia and reading comprehension symptoms, mimicking quite closely the symptoms of her previous stroke from 2 years ago from which she had nearly completely recovered. 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; * A now have some records from [facility], and it appears that her left vertebral artery 2 years ago was not actually occluded but had high-grade stenosis such that her complete occlusion of that vertebral artery has occurred sometime between 2016 and now; unclear if this could have been a new occlusion yesterday causing her symptoms 3- current use of Crestor and Plavix daily at home 4- severe hypertension at presentation to the ER is likely caused by her presenting episode, blood pressure much improved at this time 5- sleep apnea, probably not optimally treated at this time, and needing ongoing evaluation and management 6- chronic bronchiectasis and sarcoid disease, all stable at present Overnight she has had no recurrence of sxs, and no other events, no AFib LDL is in good range, BPs in good range today; initial heparin level a bit high , dose lowered with repeat test pending I have reivewed in detail with Dr Calvo and Dr Rock this am, and examined the patient together with Dr Ferro. Again as this is her second episode of ischemic L sided symptoms with severe L cerebrovascular disease, she is at very high risk. She has excellent neurologic function and overall functional status and lifestyle/independence. A revascularization would be desirable, though endovascular approach for an ostial takeoff lesion of CC would be very high risk , and this is not likely amenable to CEA, ?more likely a bypass?. Dr Rock will see the patient, and review w Dr Cueva. It may be useful to review also with Dr Elise and Dr Villalobos after initial consultations. I have reviewed all of this again in detail today with the patient. PLANS: -continue Plavix and heparin at this time -continue statin at current dose -continue very careful monitoring and management of blood pressures -continue cardiac monitoring -await echocardiogram which is pending -await formal consultation by Dr. Cueva and Pranav; potential consultation was other surgeons as well -the patient is aware to notify us immediately of any change in her symptoms or status -continue neurochecks -physical therapy occupational therapy assessments today -continue monitoring of her oxygenation during sleep, with interventions as necessary unavailable with Respiratory therapy for her sleep apnea SUBJECTIVE: She feels comfortable this morning, no headache, no recurrence of in her language deficits from yesterday and no other new neuro symptoms No palpitations or other cardiac sending symptoms No fever symptoms OBJECTIVE Vitals reviewed: Blood pressure is much better in good range overall, no other abnormalities of vital signs 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 Ferro neurologic examination today which basically showed no deficits skin warm dry color ok resps not labored lungs clear BSs heart regular with no murmur abd soft nondistended nontender, bowel sounds present limbs warm, no edema iv site ok Laboratory data: LDL is at 73 Heparin level this morning 0.9 Chemistry panel stable Objective: Vital Signs Temp Pulse Resp BP Pulse Ox 36.9 C 65 15 144/72 H 97 07/03/17 07:59 07/03/17 07:59 07/03/17 07:59 07/03/17 07:59 07/03/17 07:59 Laboratory Results 07/02/17 20:07 07/03/17 03:50 07/02/17 07/03/17 07/04/17 06:59 06:59 06:59 Intake Total 800 Balance 800 PT 13.6 SEC (12.0-15.0) 07/02/17 20:07 INR 1.02 (0.83-1.16) 07/02/17 20:07 - Time Spent With Patient Time Spent with Patient: greater than 35 minutes Time Spent with Patient: Greater than 35 minutes spent on this patients care, greater than 50% of time spent counseling, educating, and coordinating care regarding the above mentioned plan. ICD10 Worksheet Patient Problems: Problems Problem Status Onset Vertebral artery dissection Acute Right upper lobe pneumonia Acute chronic disease mgmt/transitional care Acute
--- NOTE | 2017-07-03 09:22 | PDMN ---
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
[2017-07-03] MEDS: CLOPIDOGREL BISULFATE 75 MG TAB PO SCH (09:53)
--- NOTE | 2017-07-03 09:59 | ECHO ---
[email or web address] [address] [address] Main: [phone] Fax: Transthoracic Echocardiogram Name: Kasey LE MR#: [id number] Study Date: 07/03/2017 Study Time: 08:08 AM Date of : 1945 Age: 71 year(s) Height: 165.1 cm (65 in.) Weight: 65.77 kg (145 lb.) BSA: 1.73 m2 Gender: Female Examination: Echo Indication: stroke Image Quality: Adequate Contrast: Requested by: Elan Ferraro BP: 141 mmHg/80 mmHg Heart Rate: 63 bpm Rhythm: Normal sinus rhythm Indication: stroke Procedure Staff Tank Wagon Operator: Stacey Nieves [facility] Reading Physician: Seng Cox MD Requesting Provider: Conclusions: Normal size left ventricle. No LV hypertrophy. Normal global systolic LV function. EF is 70 %. No regional wall motion abnormality. Normal RV function. The mitral valve leaflets appear redundant. There is mild bileaflet mitral valve prolapse. Trivial mitral valve regurgitation. No mitral stenosis is present. The aortic valve is tri-leaflet and functions normally. There is no aortic valve regurgitation. No aortic valve stenosis is present. Mild tricuspid regurgitation is present. Right ventricular systolic pressure measures 30mmHg. Borderline elevated pumonary artery pressure. Normal size aortic root measuring 3.4 cm. Normal size ascending aorta measuring 2.9 cm. The IVC is normal sized. Measurements: Chambers Valvular Assessment AV/MV Valvular Assessment TV/PV Normal Normal Normal Name Value Range Name Value Range Name Value Range Ao Kisha (MM): 3.4 cm (2.2 cm-3.7 AV Vmax: 0.92 m/s (1 m/s-1.7 TR Vmax: 2.50 mm/s ( - ) cm) m/s) TR PGmax: 25 mmHg ( - ) IVSd (2D): 1.0 cm (0.6 cm-1.1 AV maxP mmHg ( - ) syst. PAP: 30 mmHg ( - ) cm) LVOT Vmax: 0.64 m/s (0.7 m/s-1.1 PV Vmax: 0.57 m/s (0.6 m/s-0.9 LVDd (2D): 4.0 cm (3.9 cm-5.3 m/s) m/s) cm) MV E Vmax: 0.50 m/s ( - ) Patient: Kasey LE Study Date: 07/03/2017 Page 1 of 2 08:08 AM LVDs (2D): 2.9 cm (2.1 cm-4 MV A Vmax: 0.59 m/s ( - ) PV PGmax: 1 mmHg ( - ) cm) MV E/A: 0.85 ( - ) LVPWd (2D): 0.8 cm ( - ) LVEF (BP): 70 % (>=55 %) RVDd(2D): 3.2 cm (1.9 cm-3.8 cmmm) Continued Measurements: Chambers Valvular Assessment AV/MV Valvular Assessment TV/PV Name Value Name Value Name Value LADs: 3.4 cm MV DecTime: 165 m/s CVP (est.): 5 mmHg LADs Lon.2 cm MV E/E' Septal: 9.20 LA Area: 14.9 cm2 MV E/E' Lateral: 11.50 RA Area: 18.0 cm2 Additional Vessels Name Value Ao Ascendin.9 cm Findings: Left Ventricle: Normal size left ventricle. No LV hypertrophy. Normal global systolic LV function. EF is 70 %. No regional wall motion abnormality. Normal diastolic LV function. Right Ventricle: Normal size right ventricle. Normal RV function. Left Atrium: The left atrium is normal in size. Right Atrium: The right atrium is normal in size. Mitral Valve: The mitral valve leaflets appear redundant. There is mild bileaflet mitral valve prolapse.Trivial mitral valve regurgitation. No mitral stenosis is present. Aortic Valve: The aortic valve is tri-leaflet and functions normally. There is no aortic valve regurgitation. No aortic valve stenosis is present. Tricuspid Valve: The tricuspid valve is normal in appearance and function. Mild tricuspid regurgitation is present. Right ventricular systolic pressure measures 30mmHg. Borderline elevated pumonary artery pressure. Pulmonic Valve: The pulmonic valve is normal in appearance and function. There is no pulmonic regurgitation seen. Aorta: The aorta is normal. Normal size aortic root measuring 3.4 cm. Normal size ascending aorta measuring 2.9 cm. IVC: The IVC is normal sized. Pericardium: Trace anterior pericardial effusion versus fat pad. (No Signature Object) Patient: Kasey LE Study Date: 07/03/2017 Page 2 of 2 08:08 AM [id number]
--- NOTE | 2017-07-03 10:54 | ASMTCMCOM ---
CM Note CM Note Notes: 07/03/2017 Case Management Note Reviewed chart. Pt admitted for vert artery dissection per admit orders. Pt was d/c from [facility] services after eval. Awaiting PT and OT eval recommendations. Pt is ambulating in room without difficulty. Pt was independent in ADL's prior to admission. Pt is and has family support. Case Management d/c poc: to be determined pending eval recommendations. Case Management to follow. Date Signed: 07/03/2017 10:53 AM Electronically Signed By:Brooklyn Maurer RN
--- NOTE | 2017-07-03 11:03 | NEUROPROG ---
Assessment: HOSPITAL NEUROLOGY CONSULT REQUESTING: Matthew Ferraro MD REASON: TIA HPI: 71 year old right-handed woman with a history of TIA/stroke, HTN, HLD, MADISYN, carotid stenosis presented to our ED yesterday with symptoms concerning for a TIA. Two years ago the patient was residing in [place] and had an episode of aphasia, which was ultimately diagnosed as a stroke. She was evaluated by [facility] vascular neurosciences team and found to have a 90% stenosis of the LICA at its origin. It was decided she should have her medical therapy maximized instead of intervention. She has since been maintained on clopidogrel, rosuvastatin and had her BP monitored. She had done well since yesterday, when she had another episode of expressive aphasia with some features of receptive aphasia. She states she couldn't get words out correctly and had some trouble with understanding written word. She denies any weakness, sensory loss, visual disturbance, gait change. She states symptoms started around 0800 and gradually subsided by 0930. She had an MRI brain wo here showing nothing acute , but noted chronic left frontal lobe infarct, right cerebellar chronic infarct and chronic microvascular ischemic changes in the white matter. CTA head/neck revealed her chronic LICA stenosis of 90% at the origin, as well as near total occlusion of the origin of the left vertebral artery. She has been admitted for further intervention. She has been started on a heparin drip. ROS: As per the HPI, otherwise a complete 12 point ROS was performed and is negative ALLERGIES AND MEDS: As recorded in the EMR - reviewed and reconciled PFSH: As per the intake H&P by Dr. Ferraro from yesterday EXAM: VS reviewed in EMR GEN: WDWN laying in NAD HEENT: NCAT, sclera anicteric, conjunctiva not injected, MMM, oropharynx clear, no scalp tenderness NECK: supple, nontender, no meningismus CV: RRR s1 s2 wo m/r/c/g. Carotid pulses 2+ wo bruit NEURO: MS: awake, alert, oriented to all spheres. Speech nondysarthric. No language disturbance. Follows commands. Attends to both sides. Recent/remote memory grossly intact. Mood euthymic. Good fund of knowledge. CN: pupils 3mm round and reactive. Unable to visualize fundi. VFF. Primary gaze centered. Full ocular motility. Facial sensation preserved. Face symmetric. Hearing grossly intact to finger rub. Palatoglossal movements intact. Shoulder shrug and head turn strong. MOTOR: normal bulk/tone. No adventitial movements. Full power throughout. SENSORY: intact LT/PP throughout the extremities. No extinction. COORD: no ataxia FN/HS. Lauren preserved. REFLEX: plantars down. No clonus. DTRS trace. GAIT: deferred to PT safety eval DATA REVIEW: Labs reviewed in EMR PERSONALLY INTERPRETED RESULTS AND DATA: MRI brain and CTA per the HPI IMPRESSION AND RECOMMENDATIONS: // TIA // CAROTID STENOSIS ON LEFT // HTN // HLD // MADISYN Patient with episode of aphasia in the setting of severe LICA stenosis. I do think her carotid artery is symptomatic/culprit in her TIA. She has evidence of a chronic infarct referable to the left anterior circulation, as well. This is her at least second event referable to this localization, so I do think intervention is warranted at this time, especially in the setting of a prolonged trial of max medical therapy. 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
--- NOTE | 2017-07-03 15:46 | SOAPPROG ---
AVELINA Progress Note Assessment/Plan: Assessment: 71-year-old female with recurrent TIAs known to have a critical stenosis of her left carotid origin at the aorta. Carotid arteries are open and normal above this area and she has had no actual stroke but has had 2 significant TIAs I think she needs some correction of this situation before she sustains a true stroke/I agree with heparin for now Options: 1. Medical management with full anticoagulation 2. Intravascular stent placement at the origin of her carotid/ this is probably high risk and quite difficult to do but have to discuss with IR 3. Median sternotomy and angioplasty or replacement of the left carotid origin 4. Subclavian carotid bypass or carotid carotid bypass which is probably the safest easiest approach to correct the situation Risks and options fully discussed with the patient Plan: Continue heparin and discuss options with IR and cardiac surgery 07/03/17 15:42 Objective: Vital Signs Temp Pulse Resp BP Pulse Ox 36.4 C 79 16 126/62 H 94 07/03/17 12:00 07/03/17 12:00 07/03/17 12:00 07/03/17 12:00 07/03/17 12:00 Laboratory Results 07/02/17 20:07 07/03/17 03:50 07/02/17 07/03/17 07/04/17 05:59 05:59 05:59 Intake Total 800 850 Balance 800 850 PT 13.6 SEC (12.0-15.0) 07/02/17 20:07 INR 1.02 (0.83-1.16) 07/02/17 20:07 ICD10 Worksheet Patient Problems: Problems Problem Status Onset Vertebral artery dissection Acute Right upper lobe pneumonia Acute chronic disease [facility]/transitional care Acute
[2017-07-03] MEDS: ROSUVASTATIN CALCIUM 10 MG TAB PO SCH (20:18)
[2017-07-03] MEDS: MULTIVITAMINS 1 EACH TAB PO SCH (20:18)
[2017-07-04] MEDS: LEVOTHYROXINE 25 MCG TAB PO SCH (05:16)
[2017-07-04] MEDS: CALCIUM CARBONATE 500 MG TAB PO SCH (09:35)
[2017-07-04] MEDS: CLOPIDOGREL BISULFATE 75 MG TAB PO SCH (09:35)
[2017-07-04] MEDS: predniSONE 5 MG TAB PO SCH ×2 (09:36→22:42)
--- NOTE | 2017-07-04 16:58 | ASMTCMCOM ---
CM Note CM Note Notes: Pt may have carotid artery surgery soon. PT/OT evals have been on hold until medical treatment plan determined. CM to follow for d/c planning. Date Signed: 07/04/2017 04:58 PM Electronically Signed By:WILFREDO Giron
--- NOTE | 2017-07-04 17:59 | SOAPPROG ---
AVELINA Progress Note Assessment/Plan: Assessment: 71-year-old female with recurrent TIAs known to have a critical stenosis of her left carotid origin at the aorta. Carotid arteries are open and normal above this area and she has had no actual stroke but has had 2 significant TIAs I think she needs some correction of this situation before she sustains a true stroke/I agree with heparin for now Options: 1. Medical management with full anticoagulation 2. Intravascular stent placement at the origin of her carotid/ this is probably high risk and quite difficult to do but have to discuss with IR 3. Median sternotomy and angioplasty or replacement of the left carotid origin 4. Subclavian carotid bypass or carotid carotid bypass which is probably the safest easiest approach to correct the situation Risks and options fully discussed with the patient Plan: Continue heparin and discuss options with IR and cardiac surgery 07/03/17 15:42 07/04/17 17:58 DOING WELL TODAY/NO NEW EVENTS/HAVE DISCUSSED OPTIONS WITH IR WHO FEELS THAT TRYING TO STENT THE ORIGIN IS TOO HIGH RISK. RISKS AND OPTIONS BEEN FULLY DISCUSSED WITH THE PATIENT WHO WISHES TO PROCEED WITH SUBCLAVIAN CAROTID BYPASS WHICH I THINK IS THEIR SAFEST THE BEST ROUTE. WE WILL TRY TO ARRANGE THAT SOON POSSIBLE Objective: Vital Signs Temp Pulse Resp BP Pulse Ox 37.0 C 77 16 142/76 H 90 L 07/04/17 16:00 07/04/17 16:00 07/04/17 16:00 07/04/17 16:00 07/04/17 16:00 Laboratory Results 07/04/17 04:35 07/03/17 03:50 07/03/17 07/04/17 07/05/17 05:59 05:59 05:59 Intake Total 800 1850 550 Balance 800 1850 550 PT 13.6 SEC (12.0-15.0) 07/02/17 20:07 INR 1.02 (0.83-1.16) 07/02/17 20:07 ICD10 Worksheet Patient Problems: Problems Problem Status Onset Vertebral artery dissection Acute Right upper lobe pneumonia Acute chronic disease [facility] Acute
--- NOTE | 2017-07-04 18:45 | HOSPPROG ---
Hospitalist Progress Note Assessment/Plan: DIAGNOSES: 1- acute TIA with expressive aphasia and reading comprehension symptoms, mimicking quite closely the symptoms of her previous stroke from 2 years ago from which she had nearly completely recovered. 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; * A now have some records from [facility], and it appears that her left vertebral artery 2 years ago was not actually occluded but had high-grade stenosis such that her complete occlusion of that vertebral artery has occurred sometime between 2016 and now; unclear if this could have been a new occlusion yesterday causing her symptoms 3- current use of Crestor and Plavix daily at home 4- severe hypertension at presentation to the ER is likely caused by her presenting episode, blood pressure much improved at this time 5- sleep apnea, probably not optimally treated at this time, and needing ongoing evaluation and management 6- chronic bronchiectasis and sarcoid disease, all stable at present I reviewed her case in detail today with Dr. Seng Rock I reviewed her diagnoses, current progression, treatment options in detail with the patient and her at the bedside today. PLANS: -continue Plavix and heparin at this time -continue statin at current dose -continue very careful monitoring and management of blood pressures -continue cardiac monitoring -cardiology consultation for preoperative clearance -the patient is aware to notify us immediately of any change in her symptoms or status -continue neurochecks -continue monitoring of her oxygenation during sleep, with interventions as necessary unavailable with Respiratory therapy for her sleep apnea; I reviewed with respiratory therapist today SUBJECTIVE: No recurrent neurologic symptoms of any kind No Headache No cardiac symptoms No fever respiratory symptoms OBJECTIVE Vitals reviewed: Stable overall with occasional mild systolic pressure elevations Bench Hand, my review: Steady sinus rhythm no signs of atrial fibrillation Exam: alert oriented No speech language or neuro deficits noted skin warm dry color ok resps not labored lungs clear BSs heart regular with no murmur abd soft nondistended nontender, bowel sounds present limbs warm, no edema iv site ok Laboratory data: LDL is at 73 Heparin level in therapeutic range Platelets stable Objective: Vital Signs Temp Pulse Resp BP Pulse Ox 37.0 C 77 16 142/76 H 90 L 07/04/17 16:00 07/04/17 16:00 07/04/17 16:00 07/04/17 16:00 07/04/17 16:00 Laboratory Results 07/04/17 04:35 03/01/18 03:50 07/03/17 07/04/17 07/05/17 06:59 06:59 06:59 Intake Total 800 1850 550 Balance 800 1850 550 PT 13.6 SEC (12.0-15.0) 07/02/17 20:07 INR 1.02 (0.83-1.16) 07/02/17 20:07 - Time Spent With Patient Time Spent with Patient: greater than 35 minutes Time Spent with Patient: Greater than 35 minutes spent on this patients care, greater than 50% of time spent counseling, educating, and coordinating care regarding the above mentioned plan. ICD10 Worksheet Patient Problems: Problems Problem Status Onset Vertebral artery dissection Acute Right upper lobe pneumonia Acute chronic disease mgmt/transitional care Acute
[2017-07-04] MEDS: ROSUVASTATIN CALCIUM 10 MG TAB PO SCH (22:39)
[2017-07-04] MEDS: MULTIVITAMINS 1 EACH TAB PO SCH (22:42)
[2017-07-05 05:26] LABS: PLATELET COUNT 164 10^3/uL (150-400)
[2017-07-05] MEDS: LEVOTHYROXINE 25 MCG TAB PO SCH (06:10)
[2017-07-05] MEDS: CLOPIDOGREL BISULFATE 75 MG TAB PO SCH (08:45)
[2017-07-05] MEDS: HEPARIN/DEXTROSE 500 ML IV SCH (08:45)
[2017-07-05] MEDS: predniSONE 5 MG TAB PO SCH ×2 (08:45→21:02)
[2017-07-05] MEDS: CALCIUM CARBONATE 500 MG TAB PO SCH (08:45)
--- NOTE | 2017-07-05 17:04 | HOSPPROG ---
Hospitalist Progress Note Assessment/Plan: DIAGNOSES: 1- acute TIA with expressive aphasia and reading comprehension symptoms, mimicking quite closely the symptoms of her previous stroke from 2 years ago from which she had nearly completely recovered. 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; * A now have some records from [facility], and it appears that her left vertebral artery 2 years ago was not actually occluded but had high-grade stenosis such that her complete occlusion of that vertebral artery has occurred sometime between 2016 and now; unclear if this could have been a new occlusion yesterday causing her symptoms 3- current use of Crestor and Plavix daily at home 4- severe hypertension at presentation to the ER is likely caused by her presenting episode, blood pressure much improved at this time 5- sleep apnea, probably not optimally treated at this time, and needing ongoing evaluation and management 6- chronic bronchiectasis and sarcoid disease, all stable at present I reviewed her case in detail with Dr. Manuel Cohn today who has not seen her at the bedside. As the patient has been active at home and does not have any cardiac symptoms at home, and does not have any cardiac symptoms or arrhythmia here and no signs of heart failure and a good echocardiogram no further cardiac evaluation would be indicated prior to proceeding with surgery. Given her age and her peripheral vascular disease in the carotids she does have a higher risk of having coronary disease but as it is asymptomatic there would be no indication to do any kind of intervention prior to vascular surgery. From a respiratory standpoint she does have some central sleep apnea and so in the postop setting she may need BiPAP or other respiratory support and she will certainly need to be watch closely from a respiratory standpoint. I anticipate she would likely be in ICU either way where she can be watched closely. Again at this point however she has no exertional dyspnea or rest dyspnea and does not require oxygen during the day so there is no further evaluation or treatment necessary at this time. Her plans are tentatively to trying do surgery tomorrow but it being a Friday will have to see how the OR schedule looks in the morning. I will make her NPO after midnight just in case she is able to go to surgery tomorrow. She is ready for surgery at this time and her questions have all been answered PLANS: -will make NPO after midnight in case surgery can be done tomorrow. -continue Plavix and heparin at this time; anticipate potentially stopping heparin for surgery early tomorrow morning -continue statin at current dose -continue very careful monitoring and management of blood pressures -continue cardiac monitoring -the patient is aware to notify us immediately of any change in her symptoms or status -continue neurochecks -continue monitoring of her oxygenation during sleep, with interventions as necessary for her sleep apnea; I reviewed with respiratory therapist today SUBJECTIVE: Feels well with no neurologic symptoms, respiratory or cardiac symptoms, fever symptoms, or other acute issues No bleeding Eating well OBJECTIVE Vitals reviewed: Stable overall with occasional mild systolic pressure elevations 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, 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: Steady sinus rhythm no signs of atrial fibrillation Exam: alert oriented No speech language or neuro deficits noted skin warm dry color ok resps not labored lungs clear BSs heart regular with no murmur abd soft nondistended nontender, bowel sounds present limbs warm, no edema iv site ok Laboratory data: LDL is at 73 Heparin level in therapeutic range Stable CBC and metabolic panel Objective: Vital Signs Temp Pulse Resp BP Pulse Ox 36.1 C 74 13 150/82 H 94 07/05/17 15:47 07/05/17 15:47 07/05/17 15:47 07/05/17 15:47 07/05/17 15:47 Laboratory Results 07/05/17 04:53 07/05/17 04:53 07/04/17 07/05/17 07/06/17 06:59 06:59 06:59 Intake Total 9354 995 9573 Output Total 1 Balance 6400 912 4359 PT 13.6 SEC (12.0-15.0) 07/02/17 20:07 INR 1.02 (0.83-1.16) 07/02/17 20:07 ICD10 Worksheet Patient Problems: Problems Problem Status Onset Vertebral artery dissection Acute Right upper lobe pneumonia Acute chronic disease mgmt/transitional care Acute
[2017-07-05] MEDS ORDERED: ceFAZolin 2 GM/SWFI 2 GM/20 ML SYR IVP ONE (19:00)
[2017-07-05] MEDS: MULTIVITAMINS 1 EACH TAB PO SCH (21:03)
[2017-07-05] MEDS: ROSUVASTATIN CALCIUM 10 MG TAB PO SCH (21:03)
[2017-07-06] MEDS: LEVOTHYROXINE 25 MCG TAB PO SCH (06:14)
[2017-07-06] MEDS ORDERED: BACITRACIN ZINC 14.2 GM OINTTUBE TP ONE (07:30)
[2017-07-06] MEDS ORDERED: THROMBIN (BOVINE) 20,000 UNIT SPRAY TP ONE (07:30)
[2017-07-06] MEDS ORDERED: BUPIVACAINE 0.5% 10 ML SDV ONE (07:31)
[2017-07-06] MEDS ORDERED: PROTAMINE SULFATE 50 MG/5 ML VIAL IVP ONE (07:31)
[2017-07-06 07:39] LABS: PLATELET COUNT 158 10^3/uL (150-400)
[2017-07-06] MEDS ORDERED: ceFAZolin 2 GM/SWFI 20 ML SYR IVP ONE (07:52)
[2017-07-06] MEDS ORDERED: MIDAZOLAM 2 MG/2 ML VIAL IVP ONE (07:55)
[2017-07-06] MEDS ORDERED: MIDAZOLAM 2 MG/2 ML VIAL ONE (07:56)
--- NOTE | 2017-07-06 08:00 | PDANEPAE ---
ANE History of Present Illness L Common Carotid to L subclavian bypass for LCCA ostial occlusion ANE Past Medical History - Cardiovascular History Hx Hypertension: Yes - Pulmonary History Hx Oxygen in Use at Home: Yes O2 in Use at Home (L/minute): 2 Hx Sleep Apnea: Yes Sleep Apnea Screening Result - Last Documented: Positive - Endocrine History Hx Diabetes: No Hypothyroid: Yes - Neurological & Psychiatric Hx Hx Neurological and Psychiatric Disorders: Yes Neurological / Psychiatric History Comment: CVA and TIA - Chronic Pain History Chronic Pain: Yes ANE Review of Systems Review of Systems: - Exercise capacity METS (RN): 4 METS ANE Patient History - Allergies Allergies/Adverse Reactions: hydroxychloroquine sulfate [From Plaquenil] Allergy (Severe, Verified 07/02/17 10:24) sz Penicillins Allergy (Mild, Verified 07/02/17 10:24) itchy rash - Home Medications Home medications: home medication list seen and reviewed Home Medications: Clopidogrel Bisulfate [Plavix (*)] 75 mg PO DAILY 05/02/16 [Last Taken 07/02/17] Multivitamins [Multivitamin (*)] 1 each PO HS 01/13/17 [Last Taken 07/01/17] Rosuvastatin Calcium [Crestor 5mg] 5 mg PO HS 01/13/17 [Last Taken 07/01/17] predniSONE 5 mg PO BID 01/13/17 [Last Taken 07/02/17] Azithromycin 250 mg PO Q2D@21 07/02/17 [Last Taken 07/01/17] Calcium Carbonate [Oyster Shell Calcium 500 mg (*)] 500 mg PO DAILY 07/02/17 [ Last Taken Unknown] Estrogens,Conjugated [Premarin 0.625 MG (*)] 0.625 mg PO HS 07/02/17 [Last Taken 07/01/17] Levothyroxine [Synthroid 25 mcg (*)] 25 mcg PO DAILY06 07/02/17 [Last Taken ] - NPO status NPO Since - Liquids (Date): 07/06/17 NPO Since - Liquids (Time): 00:00 NPO Since - Solids (Date): 07/06/17 NPO Since - Solids (Time): 00:00 - Smoking Hx Smoking Status: Former smoker ANE Labs/Vital Signs - Labs Result Diagrams: 07/06/17 07:25 07/05/17 04:53 - Vital Signs Blood Pressure: 137/72 Heart Rate: 72 Respiratory Rate: 18 O2 Sat (%): 92 Height: 165 cm Weight: 66.043 kg ANE Physical Exam - Airway Mallampati Score: Class 2 Mouth exam: normal dental/mouth exam - Pulmonary Pulmonary: no respiratory distress - Cardiovascular Cardiovascular: regular rate and rhythym - ASA Status ASA Status: III ANE Anesthesia Plan Anesthesia Plan: general endotracheal anesthesia Lines/Monitors: arterial line
[2017-07-06] MEDS ORDERED: REMIFENTANIL HCL 1 MG VIAL ONE (08:11)
[2017-07-06] MEDS ORDERED: PROPOFOL/EMULSION 500 MG/50 ML BOTTLE IV ONE (08:12)
[2017-07-06] MEDS ORDERED: fentaNYL 100 MCG/2 ML INJ ONE (08:12)
[2017-07-06] MEDS ORDERED: PHENYLEPHRINE 10 MG/ML SDV ONE (08:47)
[2017-07-06] MEDS ORDERED: GLYCOPYRROLATE 0.2 MG/1 ML VIAL ONE (08:57)
[2017-07-06] MEDS ORDERED: LIDOCAINE HCL 160 MG/4 ML LTA KIT TP ONE (09:18)
[2017-07-06] MEDS ORDERED: HEPARIN 10,000 UNIT/10 ML MDV (1,000 UNIT/ML) ONE (09:18)
[2017-07-06] MEDS ORDERED: ACETAMINOPHEN 500 MG TAB PO PRN (10:33)
[2017-07-06] MEDS ORDERED: NS 500 ML IV PRN (10:33)
[2017-07-06] MEDS ORDERED: METOCLOPRAMIDE 10 MG/2 ML VIAL IVP PRN (10:33)
[2017-07-06] MEDS ORDERED: ALBUTEROL 3 ML DEYVIAL IH PRN (10:33)
[2017-07-06] MEDS ORDERED: HYDROCODONE/APAP 5/325 TAB PO PRN (10:33)
[2017-07-06] MEDS ORDERED: LR 500 ML IV PRN (10:33)
[2017-07-06] MEDS ORDERED: PROMETHAZINE HCL 25 MG/ML INJ IVP PRN (10:33)
[2017-07-06] MEDS ORDERED: fentaNYL 100 MCG/2 ML INJ IVP PRN (10:33)
[2017-07-06] MEDS ORDERED: LABETALOL HCL 5 MG/ML 20 ML MDV IVP PRN (10:33)
[2017-07-06] MEDS ORDERED: PHENYLEPHRINE HCL 100 MCG/ML SYR IVP PRN (10:33)
[2017-07-06] MEDS ORDERED: OXYCODONE/APAP 5/325 TAB PO PRN (10:33)
[2017-07-06] MEDS ORDERED: NALOXONE HCL 0.4 MG/ML INJ IVP PRN (10:33)
[2017-07-06] MEDS ORDERED: DEXAMETHASONE 4 MG/ML VIAL IVP PRN (10:33)
[2017-07-06] MEDS ORDERED: MEPERIDINE 25 MG/ML SYR IVP PRN (10:33)
[2017-07-06] MEDS ORDERED: ONDANSETRON 4 MG/2 ML VIAL IVP PRN (10:33)
--- NOTE | 2017-07-06 10:57 | SOAPPROG ---
AVELINA Progress Note Assessment/Plan: Assessment: 71-year-old female with recurrent TIAs known to have a critical stenosis of her left carotid origin at the aorta. Carotid arteries are open and normal above this area and she has had no actual stroke but has had 2 significant TIAs I think she needs some correction of this situation before she sustains a true stroke/I agree with heparin for now Options: 1. Medical management with full anticoagulation 2. Intravascular stent placement at the origin of her carotid/ this is probably high risk and quite difficult to do but have to discuss with IR 3. Median sternotomy and angioplasty or replacement of the left carotid origin 4. Subclavian carotid bypass or carotid carotid bypass which is probably the safest easiest approach to correct the situation Risks and options fully discussed with the patient Plan: Continue heparin and discuss options with IR and cardiac surgery 07/03/17 15:42 07/04/17 17:58 DOING WELL TODAY/NO NEW EVENTS/HAVE DISCUSSED OPTIONS WITH IR WHO FEELS THAT TRYING TO STENT THE ORIGIN IS TOO HIGH RISK. RISKS AND OPTIONS BEEN FULLY DISCUSSED WITH THE PATIENT WHO WISHES TO PROCEED WITH SUBCLAVIAN CAROTID BYPASS WHICH I THINK IS THEIR SAFEST THE BEST ROUTE. WE WILL TRY TO ARRANGE THAT SOON POSSIBLE 07/06/17 10:55 SURGICAL RISKS AND OPTIONS FULLY DISCUSSED THIS AM AND SHE AND WISH TO PROCEED WITH SUBCLAVIAN-CAROTID BYPASS Objective: Vital Signs Temp Pulse Resp BP Pulse Ox 36.9 C 72 18 137/72 H 92 07/06/17 07:53 07/06/17 08:00 07/06/17 08:00 07/06/17 08:00 07/06/17 08:00 Laboratory Results 07/06/17 07:25 07/05/17 04:53 07/05/17 07/06/17 07/07/17 05:59 05:59 05:59 Intake Total 750 2220 Output Total 1 Balance 749 2220 PT 13.6 SEC (12.0-15.0) 07/02/17 20:07 INR 1.02 (0.83-1.16) 07/02/17 20:07 ICD10 Worksheet Patient Problems: Problems Problem Status Onset Vertebral artery dissection Acute Right upper lobe pneumonia Acute chronic disease [facility]/transitional care Acute
--- NOTE | 2017-07-06 10:59 | POSTOPPROG ---
Post Op Note Date of Operation: 07/06/17 Surgeon: Seng [employer] Tester: ANUJ Anesthesiologist: LITZY Anesthesia: GET(General Endotracheal) Pre-op Diagnosis: LEFT COMMON CAROTID NEAR OCCLUSION Post-op Diagnosis: SAME Indication: TIA AND CVA Procedure: LEFT SUBCLAVIAN-CAROTID BYPASS WITH EEG AND 6MM GORTEX GRAFT Findings: NO EEG CHANGES / GOOD BACK FLOW FROM ICA Inf/Abcess present in the surg proc area at time of surgery?: No Depth: Organ Space EBL: 50-100 Complications: 0 Drains: Javi Cartagena
[2017-07-06] MEDS ORDERED: HYDROmorphONE/DILAUDID 1 MG/ML INJ IVP PRN (11:01)
[2017-07-06] MEDS: D5W 1/2 NS W/ 20 KCl/L 1,000 ML IV SCH ×2 (11:48→22:37)
--- NOTE | 2017-07-06 11:48 | POSTANESTH ---
Post Anesthetic Evaluation Cardiovascular Status: Normal, Stable Respiratory Status: Tx Decrease in SpO2 Level of Consciousness/Mental Status: Can Participate in Eval Pain Control: Adequate, Prn Tx Ordered Nausea/Vomiting Control: Adequate, Prn Tx Ordered Complications Possibly Related to Anesthesia: None Noted (0 neurologic deficits)
[2017-07-06] MEDS: CALCIUM CARBONATE 500 MG TAB PO SCH (11:51)
[2017-07-06] MEDS: HYDROmorphONE/DILAUDID 2 MG/ML INJ IVP PRN ×3 (12:04→19:52)
[2017-07-06] MEDS: predniSONE 5 MG TAB PO SCH ×2 (12:12→19:51)
[2017-07-06] MEDS: CLOPIDOGREL BISULFATE 75 MG TAB PO SCH (12:12)
--- NOTE | 2017-07-06 14:21 | GCON ---
[f rep st] CONSULTATION DATE OF CONSULTATION: 07/03/2017 The patient is a 71-year-old female who is admitted because of TIA involving mostly speech and word-f inding difficulties. She has had a previous left-sided stroke from which she has mostly recovered an d some other TIA episodes. A CT angiogram has revealed a high-grade, over 90%, occlusion of her left common carotid. Her carotid bifurcations are widely open bilaterally and her right carotid common c arotid is widely open, but she has a critical stenosis of the left common carotid origin off the aort ic arch. She has been on Plavix since her previous stroke, but has had a repeat episode. PAST MEDICAL HISTORY: Includes a previous stroke. She also has a total occlusion of her left verteb ral artery of uncertain timing. Has a history of sarcoidosis, bronchiectasis, COPD. 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 She has had one episode of pneumonia. REVIEW OF SYSTEMS: Negative on a full 10-point review except for as related to HPI. She also has hy pothyroidism and sleep apnea. FAMILY HISTORY: Positive for diabetes but otherwise noncontributory. MEDICATIONS: Plavix. ALLERGIES: None. PHYSICAL EXAMINATION: GENERAL: Reveals an alert cooperative 71-year-old female in no acute distress . She is afebrile. HEAD AND NECK: Reveals no icterus, PERRLA, no adenopathy and no oral lesions. NECK: Supple without thyromegaly or bruits. CHEST: Clear and symmetric. CARDIAC: Reveals a regul ar rhythm. ABDOMEN: Soft, nontender, without masses, organomegaly, or bruits. EXTREMITIES: Benign . Full pulses. NEUROLOGIC: Symmetric and physiologic at this time with cranial nerves intact and n o residual evidence of a left-sided stroke. PSYCH: She is oriented, cooperative, and alert. SKIN: Reveals no rashes or major lesions. IMPRESSION: Critical stenosis of her left common carotid origin at the aortic arch. I think this is probably responsible for her transient ischemic attack symptoms, although her occluded left vertebra l could also contribute to her transient ischemic attack symptoms. RECOMMENDATIONS: Would be revascularization of the left carotid system. Multiple options including and endovascular stent, but that is high risk for embolization and our folks here are not interested in trying to do that. Mediastinal approach with median sternotomy and either angioplasty or reimplan tation of the left common carotid artery and the aortic arch is a possibility, but that might require cardiopulmonary bypass as well as a median sternotomy. The other approach is revascularization from either the subclavian artery or the opposite carotid. I would favor a subclavian carotid bypass. S o as not to involve both carotids, especially in light of the occluded left vertebral. Risks and opt ions have been fully discussed with the patient and her family who wished to proceed with a left subc lavian carotid bypass. We will continue the heparin therapy and obtain the cardiac clearance and the n proceed with open left subclavian to common femoral bypass. /[id number]/MODL
[2017-07-06] MEDS: TEARS/DEXTRAN 70/HYPROMELLOSE 15 ML OPHT.BTL EACHEYE SCH ×2 (14:42→22:02)
--- NOTE | 2017-07-06 15:10 | PDINTPN ---
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 Recent Sleep study shows just mild residual MADISYN on oxygen during non-supine sleep. Sarcoidosis: No evidence of active disease on low-dose prednisone. Bronchiectasis: Not clinically active Plan: O2 with sleep. She may have worse obstructive sleep apnea during hospitalization if she sleeps supine and is on respiratory depressants, but should do well overall. I'll see her as an outpatient regarding further therapy for MADISYN/CSA. 07/06/17 15:11 Subjective: Feels OK after surgery, pain controlled. Objective: Vital Signs Temp Pulse Resp BP Pulse Ox 36.3 C 69 10 L 137/65 H 100 07/06/17 11:14 07/06/17 13:59 07/06/17 13:59 07/06/17 13:59 07/06/17 13:59 Laboratory Results 07/06/17 07:25 07/05/17 04:53 07/05/17 07/06/17 07/07/17 05:59 05:59 05:59 Intake Total 750 2220 Output Total 1 Balance 749 2220 PT 13.6 SEC (12.0-15.0) 07/02/17 20:07 INR 1.02 (0.83-1.16) 07/02/17 20:07 Physical Exam - Physical Exam General Appearance: alert, no apparent distress EENT: normal ENT inspection Neck: normal inspection Respiratory: lungs clear, normal breath sounds Cardiac/Chest: regular rate, rhythm, No edema Abdomen: normal bowel sounds, non-tender Skin: normal color, warm/dry Extremities: normal inspection Neuro/Psych: alert, normal mood/affect ICD10 Worksheet Patient Problems: Problems Problem Status Onset Vertebral artery dissection Acute Right upper lobe pneumonia Acute chronic disease mgmt/transitional care Acute
--- NOTE | 2017-07-06 15:11 | GOP ---
[f rep st] OPERATIVE REPORT DATE OF OPERATION: 07/06/2017 SURGEON: Seng Rock MD IT HELP DESK ASSOCIATE: Beltran Bravo MD ANESTHESIOLOGIST: Heriberto Bravo MD. PREOPERATIVE DIAGNOSIS: Recurrent transient ischemic attacks with a critical left common carotid edgar gin stenosis. POSTOPERATIVE DIAGNOSIS: Recurrent transient ischemic attacks with a critical left common carotid or igin stenosis. PROCEDURE PERFORMED: Left subclavian to carotid artery bypass. FINDINGS: The patient was found to have good flow through the bypass. Interestingly enough, she had decent backflow from the internal carotid system. DESCRIPTION OF PROCEDURE: The patient had been systemically heparinized. She was taken to the opera tin room where she was placed in the supine position, where she received satisfactory general endotr acheal anesthesia by Dr. Bravo. She was prepped and draped in usual sterile fashion. A transverse c ervical incision was made and carried down through the platysma. A portion of the sternocleidomastoi d was freed up from the collarbone and the supraclavicular space was then dissected free. The portio n of the sternocleidomastoid muscle was divided. The internal jugular vein was dissected free and co ntrolled with a vessel loop exposing the common carotid artery, which was also dissected free and con trolled with vessel loops. This was well below any bifurcation vessels. After the common carotid wa s encircled with vessel loops, dissection extended down into the supraclavicular fossa. Some lymphat ic vessels were multiply ligated and divided. The subclavian artery was identified it was dissected free. The anterior scalene muscle was divided with care to avoid injury to the phrenic nerve and a d ecent segment of the subclavian vein could be freed up and isolated with vessel loops. After adequat e exposure was obtained, the patient was given additional heparin and after adequate circulation time the subclavian artery was occluded with vessel loops. Arteriotomy was made in the anterior wall of the subclavian. A 6 mm [place]-Benjamin graft was selected and it was beveled slightly and sutured onto the subclavian artery with a running Hemashield 6 suture. The suture line was reinforced with interrupte d 7 Hemashield sutures where necessary. Flow was established through the graft and then back down th e arm. The [place]-Benjamin graft was then passed behind the vein to the common carotid artery. A shunt was placed in the bypass graft and readied for use. The common carotid was isolated with vessel loops. Arteriotomy was made and the shunt was then placed in the common carotid artery pointing cephalad. Anastomosis was then done with the graft to the common carotid artery using a running Hemashield 7 sommers ture. When the suture line was nearly complete, the shunt was crossclamped and removed. Arterial an astomosis was then quickly completed with running Hemashield 7 suture flow was first established dist ally and then up the cephalad portion of the common carotid artery. The suture line appeared to be h emostatic. There were no EEG changes during the entire procedure. Heparin was partially reversed wi th protamine. The wound was sprayed with some topical thrombin. A 15 round silicone KARIN drain was br ought out through a separate stab incision and secured to the skin with a 3-0 silk suture. The porti on of the sternocleidomastoid that had been was reattached to the clavicle. The wound was irrigated. Hemostasis was assured. The platysma was then closed with a running 3-0 Vicryl and the s kin was closed with 4-0 Monocryl subcuticular suture. Superficial layers were infiltrated with 0.5% Marcaine. There were no complications. /[id number]/MODL
--- NOTE | 2017-07-06 18:50 | HOSPPROG ---
Hospitalist Progress Note Assessment/Plan: DIAGNOSES: # acute TIA with expressive aphasia and reading comprehension symptoms, mimicking quite closely the symptoms of her previous stroke from 2 years ago from which she had nearly completely recovered. 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 Fragoso # chronic bronchiectasis and sarcoid disease, all stable at present I reviewed in detail today with Dr. Fragoso and reviewed her respiratory status and recommendations for management. PLANS: -continue ICU care with close monitoring of respiratory status, vital signs, her wound -continue Plavix and low-dose Lovenox at this time -continue statin at current dose -continue cardiac monitoring -the patient is aware to notify us immediately of any change in her symptoms or status -neurochecks -continue monitoring of her oxygenation during sleep; contact Dr. 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: Steady sinus rhythm no atrial fibrillation Exam: alert oriented No speech language or neuro deficits noted Moving all of her limbs with good strength Facial symmetry cranial nerves and pupils are all good skin warm dry color ok resps not labored lungs clear BSs heart regular with no murmur limbs warm, no edema iv site ok Laboratory data: Objective: Vital Signs Temp Pulse Resp BP Pulse Ox 36.4 C 80 15 143/65 H 100 07/06/17 16:00 07/06/17 16:00 07/06/17 16:00 07/06/17 16:00 07/06/17 16:00 Laboratory Results 07/06/17 07:25 07/05/17 04:53 07/05/17 07/06/17 07/07/17 06:59 06:59 06:59 Intake Total 750 2220 1120 Output Total 1 600 Balance 749 2220 520 PT 13.6 SEC (12.0-15.0) 07/02/17 20:07 INR 1.02 (0.83-1.16) 07/02/17 20:07 - Time Spent With Patient Time Spent with Patient: greater than 35 minutes Time Spent with Patient: Greater than 35 minutes spent on this patients care, greater than 50% of time spent counseling, educating, and coordinating care regarding the above mentioned plan. ICD10 Worksheet Patient Problems: Problems Problem Status Onset Vertebral artery dissection Acute Right upper lobe pneumonia Acute chronic disease mgmt/transitional care Acute
[2017-07-06] MEDS: ROSUVASTATIN CALCIUM 10 MG TAB PO SCH (19:51)
[2017-07-06] MEDS: OXYCODONE/APAP 5/325 TAB PO PRN (19:51)
[2017-07-06] MEDS: MULTIVITAMINS 1 EACH TAB PO SCH (19:51)
[2017-07-07] MEDS: OXYCODONE/APAP 5/325 TAB PO PRN ×3 (00:01→09:33)
[2017-07-07] MEDS: LEVOTHYROXINE 25 MCG TAB PO SCH (05:39)
--- NOTE | 2017-07-07 09:05 | SOAPPROG ---
AVELINA Progress Note Assessment/Plan: Assessment: 71-year-old female with recurrent TIAs known to have a critical stenosis of her left carotid origin at the aorta. Carotid arteries are open and normal above this area and she has had no actual stroke but has had 2 significant TIAs I think she needs some correction of this situation before she sustains a true stroke/I agree with heparin for now Options: 1. Medical management with full anticoagulation 2. Intravascular stent placement at the origin of her carotid/ this is probably high risk and quite difficult to do but have to discuss with IR 3. Median sternotomy and angioplasty or replacement of the left carotid origin 4. Subclavian carotid bypass or carotid carotid bypass which is probably the safest easiest approach to correct the situation Risks and options fully discussed with the patient Plan: Continue heparin and discuss options with IR and cardiac surgery 07/03/17 15:42 07/04/17 17:58 DOING WELL TODAY/NO NEW EVENTS/HAVE DISCUSSED OPTIONS WITH IR WHO FEELS THAT TRYING TO STENT THE ORIGIN IS TOO HIGH RISK. RISKS AND OPTIONS BEEN FULLY DISCUSSED WITH THE PATIENT WHO WISHES TO PROCEED WITH SUBCLAVIAN CAROTID BYPASS WHICH I THINK IS THEIR SAFEST THE BEST ROUTE. WE WILL TRY TO ARRANGE THAT SOON POSSIBLE 07/06/17 10:55 SURGICAL RISKS AND OPTIONS FULLY DISCUSSED THIS AM AND SHE AND WISH TO PROCEED WITH SUBCLAVIAN-CAROTID BYPASS 07/07/17 09:03 looks good, wound ok, afebrile, uo good, minimal sheri out neuro intact, good radial pulse transfer to [facility] Objective: Vital Signs Temp Pulse Resp BP Pulse Ox 36.5 C 72 12 149/81 H 100 07/07/17 08:00 07/07/17 08:00 07/07/17 08:00 07/07/17 08:00 07/07/17 08:00 Laboratory Results 07/06/17 07:25 07/05/17 04:53 07/06/17 07/07/17 07/08/17 05:59 05:59 05:59 Intake Total 2220 2251 Output Total 2410 Balance 2220 -159 PT 13.6 SEC (12.0-15.0) 07/02/17 20:07 INR 1.02 (0.83-1.16) 07/02/17 20:07 ICD10 Worksheet Patient Problems: Problems Problem Status Onset Vertebral artery dissection Acute Right upper lobe pneumonia Acute chronic disease mgmt/transitional care Acute
[2017-07-07] MEDS: CLOPIDOGREL BISULFATE 75 MG TAB PO SCH (09:32)
[2017-07-07] MEDS: ENOXAPARIN 40 MG/0.4 ML SYR SC SCH (09:32)
[2017-07-07] MEDS: predniSONE 5 MG TAB PO SCH ×2 (09:33→20:32)
[2017-07-07] MEDS: CALCIUM CARBONATE 500 MG TAB PO SCH (09:33)
[2017-07-07] MEDS: TEARS/DEXTRAN 70/HYPROMELLOSE 15 ML OPHT.BTL EACHEYE SCH ×2 (09:38→21:26)
--- NOTE | 2017-07-07 11:44 | HOSPPROG ---
Hospitalist Progress Note Assessment/Plan: TIA with expressive aphasia - 2/2 stenosis of left common carotid artery -cont plavix, statin S/P Left subclavian / carotid bypass - POD #1. -post-op care per vascular surg -pain control with percocet, add bowel regimen Hypertension - relatively normotensive, not on anti-hypertensives at home -follow MADISYN - avoid inpt bipap per pulm -prn O2 Bronchiectasis - stable Sarcoid - cont home prednisone dose Full code Dispo - cont inpt, transfer to med surg today Subjective: Pt doing well. A little pain this am. Not taking much po yet, but good uop. No BM. A little upset stomach related to percocet she thinks. Objective: Vital Signs Temp Pulse Resp BP Pulse Ox 36.5 C 72 12 149/81 H 94 07/07/17 08:00 07/07/17 08:00 07/07/17 08:00 07/07/17 08:00 07/07/17 08:46 Laboratory Results 07/06/17 07:25 07/05/17 04:53 07/06/17 07/07/17 07/08/17 05:59 05:59 05:59 Intake Total 2220 2251 240 Output Total 2410 Balance 2220 -159 240 PT 13.6 SEC (12.0-15.0) 07/02/17 20:07 INR 1.02 (0.83-1.16) 07/02/17 20:07 - Physical Exam Constitutional: no apparent distress Eyes: PERRL Ears, Nose, Mouth, Throat: moist mucous membranes Cardiovascular: regular rate and rhythym Respiratory: no respiratory distress, clear to auscultation Gastrointestinal: normoactive bowel sounds, soft, non-tender abdomen Skin: warm, other (left subclavian ecchymosis related to incision, drain functioning) Musculoskeletal: full muscle strength Neurologic: AAOx3 Psychiatric: interacting appropriately ICD10 Worksheet Patient Problems: Problems Problem Status Onset Vertebral artery dissection Acute Right upper lobe pneumonia Acute chronic disease mgmt/transitional care Acute
[2017-07-07] MEDS ORDERED: POLYETHYLENE GLYCOL 3350 17 GM PKT PO PRN (11:54)
[2017-07-07] MEDS ORDERED: MAGNESIUM HYDROXIDE 30 ML UDCUP PO PRN (11:54)
[2017-07-07] MEDS ORDERED: LACTULOSE 20 GM/30 ML UDCUP PO PRN (11:54)
[2017-07-07] MEDS ORDERED: BISACODYL 10 MG SUPP PR PRN (11:54)
[2017-07-07] MEDS ORDERED: HYDROCODONE/APAP 5/325 TAB PO PRN (13:12)
[2017-07-07] MEDS: FAMOTIDINE 20 MG TAB PO SCH ×2 (13:21→20:33)
[2017-07-07] MEDS: HYDROmorphONE/DILAUDID 2 MG/ML INJ IVP PRN ×2 (13:32→20:20)
[2017-07-07] MEDS ORDERED: SENNOSIDES/DOCUSATE SODIUM TAB PO ONE (16:33)
[2017-07-07] MEDS: SENNOSIDES/DOCUSATE SODIUM TAB PO SCH ×2 (16:35→20:31)
--- NOTE | 2017-07-07 17:33 | ASMTCMCOM ---
CM Note CM Note Notes: Patient had a L carotid bypass surgery today and transferred to . PT recommending home, no f/u for ST, OT has not yet evaluated. CM not anticipating discharge needs. Date Signed: 07/07/2017 05:32 PM Electronically Signed By:Liana Horowitz LCSW
[2017-07-07] MEDS: ROSUVASTATIN CALCIUM 10 MG TAB PO SCH (20:32)
[2017-07-07] MEDS: MULTIVITAMINS 1 EACH TAB PO SCH (20:33)
[2017-07-07 23:59] VITALS: RESP 16
[2017-07-08] MEDS: HYDROmorphONE/DILAUDID 2 MG/ML INJ IVP PRN (01:49)
[2017-07-08] MEDS: LEVOTHYROXINE 25 MCG TAB PO SCH (06:42)
[2017-07-08] MEDS: CLOPIDOGREL BISULFATE 75 MG TAB PO SCH (08:30)
[2017-07-08] MEDS: FAMOTIDINE 20 MG TAB PO SCH ×2 (08:32→21:03)
[2017-07-08] MEDS: SENNOSIDES/DOCUSATE SODIUM TAB PO SCH ×2 (08:32→21:03)
[2017-07-08] MEDS: predniSONE 5 MG TAB PO SCH ×2 (08:32→21:04)
[2017-07-08] MEDS: CALCIUM CARBONATE 500 MG TAB PO SCH (08:32)
[2017-07-08] MEDS: TEARS/DEXTRAN 70/HYPROMELLOSE 15 ML OPHT.BTL EACHEYE SCH ×2 (08:33→21:21)
[2017-07-08] MEDS ORDERED: traMADol 50 MG TAB PO PRN ×2 (09:31→14:30)
[2017-07-08] MEDS: ACETAMINOPHEN 500 MG TAB PO SCH ×3 (09:36→21:04)
[2017-07-08] MEDS: ENOXAPARIN 40 MG/0.4 ML SYR SC SCH (10:12)
--- NOTE | 2017-07-08 14:30 | HOSPPROG ---
Hospitalist Progress Note Assessment/Plan: TIA with expressive aphasia - 2/2 stenosis of left common carotid artery -cont plavix, statin S/P Left subclavian / carotid bypass - POD #1. -post-op care per vascular surg -pain control with scheduled tylenol, prn tramadol (GI distress from percocet ) Hypertension - relatively normotensive, not on anti-hypertensives at home -follow MADISYN - avoid inpt bipap per pulm -prn O2 Bronchiectasis - stable Sarcoid - cont home prednisone dose Full code Dispo - cont inpt, transfer to med surg today Subjective: Pt doing well. Independent with ambulation. Eating/drinking. KARIN drain still in. No fevers/chills. Objective: Vital Signs Temp Pulse Resp BP Pulse Ox 36.4 C 103 H 16 122/71 H 96 07/08/17 12:00 07/08/17 12:00 07/08/17 12:00 07/08/17 12:00 07/08/17 12:00 Laboratory Results 07/06/17 07:25 07/05/17 04:53 07/07/17 07/08/17 07/09/17 05:59 05:59 05:59 Intake Total 2251 1660 400 Output Total 2410 Balance -159 1660 400 PT 13.6 SEC (12.0-15.0) 07/02/17 20:07 INR 1.02 (0.83-1.16) 07/02/17 20:07 - Physical Exam Constitutional: no apparent distress Eyes: PERRL Ears, Nose, Mouth, Throat: moist mucous membranes Cardiovascular: regular rate and rhythym Respiratory: no respiratory distress Gastrointestinal: normoactive bowel sounds, soft, non-tender abdomen Skin: warm, other (left carotid incision c/d/i, ecchymosis. minimal KARIN drain output) Musculoskeletal: full muscle strength Neurologic: AAOx3 Psychiatric: interacting appropriately ICD10 Worksheet Patient Problems: Problems Problem Status Onset Vertebral artery dissection Acute Right upper lobe pneumonia Acute chronic disease mgmt/transitional care Acute
[2017-07-08] MEDS: MULTIVITAMINS 1 EACH TAB PO SCH (21:03)
[2017-07-08] MEDS: ROSUVASTATIN CALCIUM 10 MG TAB PO SCH (21:04)
[2017-07-09] MEDS: ACETAMINOPHEN 500 MG TAB PO SCH (06:06)
[2017-07-09] MEDS: LEVOTHYROXINE 25 MCG TAB PO SCH (06:07)
[2017-07-09] MEDS: FAMOTIDINE 20 MG TAB PO SCH (08:13)
[2017-07-09] MEDS: SENNOSIDES/DOCUSATE SODIUM TAB PO SCH (08:13)
[2017-07-09] MEDS: ENOXAPARIN 40 MG/0.4 ML SYR SC SCH (08:13)
[2017-07-09] MEDS: CALCIUM CARBONATE 500 MG TAB PO SCH (08:13)
[2017-07-09] MEDS: predniSONE 5 MG TAB PO SCH (08:13)
[2017-07-09] MEDS: CLOPIDOGREL BISULFATE 75 MG TAB PO SCH (08:13)
[2017-07-09 08:34] VITALS: BP 123/68; PULSE 98; TEMP 97.7; O2SAT 95
--- NOTE | 2017-07-09 10:41 | SOAPPROG ---
SOAP Progress Note Assessment/Plan: Assessment: 71 y/o female s/p L subclavian carotid bypass S: Doing well. Denies pain. Eager to go home. O: Afebrile Alert Skin: ecchymosis around incision. Incisions cdi. Neuro: CN 2-12 grossly intact Musculoskeletal: moves all extremities equally Plan: Discussed with Dr. Rock. Ok to go from our standpoint. Follow up in the office on Friday. Continue plavix and Crestor. No additional anticoagulation needed. 07/09/17 10:38 Objective: Vital Signs Temp Pulse Resp BP Pulse Ox 36.5 C 98 16 123/68 H 95 07/09/17 08:00 07/09/17 08:00 07/09/17 08:00 07/09/17 08:00 07/09/17 08:00 Laboratory Results 07/06/17 07:25 07/05/17 04:53 07/08/17 07/09/17 07/10/17 05:59 05:59 05:59 Intake Total 1660 400 Output Total 2 Balance 1660 398 PT 13.6 SEC (12.0-15.0) 07/02/17 20:07 INR 1.02 (0.83-1.16) 07/02/17 20:07 ICD10 Worksheet Patient Problems: Problems Problem Status Onset Vertebral artery dissection Acute Right upper lobe pneumonia Acute chronic disease mgmt/transitional care Acute
--- NOTE | 2017-07-09 11:17 | HOSPPROG ---
Hospitalist Progress Note Assessment/Plan: TIA with expressive aphasia - 2/2 stenosis of left common carotid artery -cont plavix, statin S/P Left subclavian / carotid bypass - POD #1. -post-op care per vascular surg -pain control with scheduled tylenol, prn tramadol (GI distress from percocet ) Hypertension - relatively normotensive, not on anti-hypertensives at home -follow MADISYN - avoid inpt bipap per pulm -prn O2 Bronchiectasis - stable Sarcoid - cont home prednisone dose Full code Dispo - home today > 30 minutes on dc Subjective: very ready for dc Objective: Vital Signs Temp Pulse Resp BP Pulse Ox 36.5 C 98 16 123/68 H 95 07/09/17 08:00 07/09/17 08:00 07/09/17 08:00 07/09/17 08:00 07/09/17 08:00 Laboratory Results 07/06/17 07:25 07/05/17 04:53 07/08/17 07/09/17 07/10/17 05:59 05:59 05:59 Intake Total 1660 400 Output Total 2 Balance 1660 398 PT 13.6 SEC (12.0-15.0) 07/02/17 20:07 INR 1.02 (0.83-1.16) 07/02/17 20:07 - Physical Exam Constitutional: no apparent distress, appears nourished Eyes: PERRL, anicteric sclera Ears, Nose, Mouth, Throat: moist mucous membranes, hearing normal Cardiovascular: regular rate and rhythym, no murmur, rub, or gallop Respiratory: no respiratory distress, no rales or rhonchi Gastrointestinal: normoactive bowel sounds, soft, non-tender abdomen Genitourinary: no bladder fullness, No poole in urethra Skin: warm, normal color Musculoskeletal: full muscle strength ICD10 Worksheet Patient Problems: Problems Problem Status Onset Vertebral artery dissection Acute Right upper lobe pneumonia Acute chronic disease mgmt/transitional care Acute
[2017-07-09] MEDS: TEARS/DEXTRAN 70/HYPROMELLOSE 15 ML OPHT.BTL EACHEYE SCH (11:30)
--- NOTE | 2017-07-09 11:33 | GDS ---
[f rep st] DISCHARGE SUMMARY DISCHARGE DIAGNOSES: 1. Left common carotid artery stenosis with aphasia. 2. Sarcoid. 3. Status post left carotid endarterectomy. 4. Bruising from Plavix and heparin. 5. Bronchiectasis. 6. History of smoking. HOSPITAL COURSE: Please see admission history and physical by Dr. Matthew Ferraro. The patient presente d with difficulty speaking and breathing. She had a history of CVA in the past. Neck MRI indicated severe stenosis. She underwent carotid endarterectomy with Dr. Rock on 07/06/2017. She has done ve ry well postoperatively. She will continue on Plavix and Crestor. Pain management is with Tylenol. /[id number]/MODL
--- NOTE | 2017-07-09 13:56 | ASMTCMCOM ---
CM Note CM Note Notes: Pt medically stable for d/c, no CM d/c needs identified. Date Signed: 07/09/2017 01:55 PM Electronically Signed By:WILFREDO Giron
== END 2017-07-09 12:12 | disposition home or self-care (01) | DRG 983 ==
LOC: OBSVTOIN 13:01 → F3N 13:55 → F2N 07-06 09:07 → F3N 07-07 12:06
PROVIDERS: ADMIT Internal Medicine; ATTEND Internal Medicine
PROC: 03140JK Bypass Left Subclavian Artery to Left Extracranial Artery with Synthetic Substitute, Open Approach (ICD-10-PCS; principal; 2017-07-06 08:00)
DX: I65.22 Occlusion and stenosis of left carotid artery (principal); I65.02 Occlusion and stenosis of left vertebral artery; G45.9 Transient cerebral ischemic attack, unspecified; I10 Essential (primary) hypertension; G47.31 Primary central sleep apnea; G47.33 Obstructive sleep apnea (adult) (pediatric); J47.9 Bronchiectasis, uncomplicated; J44.9 Chronic obstructive pulmonary disease, unspecified; D86.0 Sarcoidosis of lung; Z86.73 Personal history of transient ischemic attack (TIA), and cerebral infarction without residual deficits; Z87.891 Personal history of nicotine dependence; Z79.02 Long term (current) use of antithrombotics/antiplatelets; Z79.01 Long term (current) use of anticoagulants
CPT/HCPCS: 85520-90; 92523-GN; 96374; 97116-GP; 97161-GP; 97165-GO; 97530-GO; 97530-GP; A9585; C1768; G8978-GP-CJ; G8979-GP-CI; G8980-GP-CI; G8987-GO-CI; G8987-GO-CJ; G8988-GO-CI; G8989-GO-CI; G9159-GN-CH; G9160-GN-CH; G9161-GN-CH; J0690; J1170; J1644; J1650; J2250; J2270; J2370; J2704; J2720; J3010; J7512; Q9967

== ENCOUNTER → 2017-08-14 | Outpatient (CLI) | payer OTHER, MEDICARE | LOC: FIMAGING 13:07 | PROVIDERS: ATTEND Internal Medicine Critical Care Medicine | DX: R91.8 Other nonspecific abnormal finding of lung field (principal); Z87.891 Personal history of nicotine dependence ==

== ENCOUNTER → 2017-09-26 | Outpatient (CLI) | payer OTHER, MEDICARE ==
[~2017-09-26] MED LIST: IOPAMIDOL (ISOVUE 370) 100 ML BTL IV ONE
== END ==
LOC: FIMAGING 15:19
PROVIDERS: ATTEND Internal Medicine
DX: I65.22 Occlusion and stenosis of left carotid artery (principal); J98.11 Atelectasis; J43.9 Emphysema, unspecified
CPT/HCPCS: 71275; Q9967

== ENCOUNTER → 2017-10-01 | Outpatient (CLI) | payer OTHER, MEDICARE | LOC: BHLMT 11:30 | PROVIDERS: ATTEND Internal Medicine Cardiovascular Disease | DX: R42 Dizziness and giddiness (principal); R06.02 Shortness of breath; R60.9 Edema, unspecified | CPT/HCPCS: 93306-PO ==

== ENCOUNTER → 2017-10-24 | Outpatient (CLI) | payer OTHER, MEDICARE | LOC: BHFA 08:30 | PROVIDERS: ATTEND Internal Medicine Cardiovascular Disease | DX: I50.9 Heart failure, unspecified (principal); I25.10 Atherosclerotic heart disease of native coronary artery without angina pectoris; I45.89 Other specified conduction disorders; R06.02 Shortness of breath | CPT/HCPCS: 78452; 93017; A9500; J2785 ==

== ENCOUNTER → 2017-10-28 | Outpatient (CLI) | payer OTHER, MEDICARE | LOC: BHFA 13:30 | PROVIDERS: ATTEND Internal Medicine Interventional Cardiology | DX: R06.02 Shortness of breath (principal) ==

== ENCOUNTER → 2017-11-07 | Outpatient (CLI) | payer OTHER, MEDICARE | DX: R06.02 Shortness of breath (principal); I11.9 Hypertensive heart disease without heart failure; I43 Cardiomyopathy in diseases classified elsewhere; J47.9 Bronchiectasis, uncomplicated; D86.9 Sarcoidosis, unspecified ==

== ENCOUNTER → 2017-12-16 | Outpatient (CLI) | payer OTHER, MEDICARE | DX: J98.6 Disorders of diaphragm (principal) ==

== ENCOUNTER 2018-02-20 16:41 | Observation (INO) | payer OTHER, MEDICARE ==
[2018-02-20 17:06] LABS: PLATELET COUNT 238 10^3/uL (150-400)
[2018-02-20] MEDS ORDERED: IOPAMIDOL (ISOVUE 370) 100 ML BTL IV ONE (17:36)
--- NOTE | 2018-02-20 18:02 | EDPHY ---
H & P Stated Complaint: Stroke like symptoms Time Seen by Provider: 02/20/18 16:51 HPI/ROS: CHIEF COMPLAINT: Expressive aphasia HISTORY OF PRESENT ILLNESS: 72-year-old female with prior left carotid bypass surgery presents with expressive aphasia. Onset of expressive aphasia at 4:15 p.m. Today, 45 min prior to arrival. Difficulty with word-finding, resolving somewhat now. No weakness or numbness. She history of TIAs and critical carotid stenosis. She went underwent a bypass of the left subclavian to carotid procedure in in July 2017 and has been on Plavix since the procedure. REVIEW OF SYSTEMS: complete 10 point ROS reviewed and is negative except for the noted elements in the HPI - Personal History Current Tetanus/Diphtheria Vaccine: Yes - Medical/Surgical History Hx Asthma: No Hx Chronic Respiratory Disease: No Hx Diabetes: No Hx Cardiac Disease: No Hx Renal Disease: No Hx Cirrhosis: No Hx Alcoholism: No Hx HIV/AIDS: No Hx Splenectomy or Spleen Trauma: No Other PMH: sarcoidosis. CVA. hypothyroid - Social History Smoking Status: Former smoker - Physical Exam Exam: General Appearance: Alert, pleasant, difficulty with word-finding Eyes: Pupils equal and round, no conjunctival pallor ENT, Mouth: Mucous membranes moist Neck: Normal inspection Respiratory: Lungs are clear to auscultation Cardiovascular: Regular rate and rhythm Gastrointestinal: Abdomen is soft and nontender Neurological: Alert, oriented x3, cranial nerves II through XII intact, motor 5 /5, sensory intact to light touch Skin: Warm and dry, no rash Extremities: Multiple areas of ecchymosis on the lower legs Psychiatric: Mood and affect normal Constitutional: Initial Vital Signs Temperature (C) 36.6 C 02/20/18 16:44 Heart Rate 94 02/20/18 16:44 Respiratory Rate 18 02/20/18 16:44 Blood Pressure 170/113 H 02/20/18 16:44 O2 Sat (%) 93 02/20/18 16:44 O2 Delivery Mode Room Air Allergies/Adverse Reactions: hydroxychloroquine sulfate [From Plaquenil] Allergy (Severe, Verified 02/20/18 16:46) sz Penicillins Allergy (Mild, Verified 02/20/18 16:46) itchy rash Home Medications: Medication Instructions Recorded Clopidogrel Bisulfate [Plavix (*)] 75 mg PO DAILY 05/02/16 Multivitamins [Multivitamin (*)] 1 each PO HS 09/11/17 Rosuvastatin Calcium [Crestor 5mg] 5 mg PO HS 01/13/17 predniSONE 5 mg PO BID 01/13/17 Azithromycin 250 mg PO Q2D@21 07/02/17 Calcium Carbonate [Oyster Shell 500 mg PO DAILY 07/02/17 Calcium 500 mg (*)] Estrogens,Conjugated [Premarin 0.625 mg PO HS 07/02/17 0.625 MG (*)] Levothyroxine [Synthroid 25 mcg 25 mcg PO DAILY06 07/02/17 (*)] traMADol [Ultram 50 mg (*)] 25 - 50 mg PO Q6 PRN #30 tab 07/09/17 Medical Decision Making - Diagnostics EKG Interpretation: EKG interpreted by me reveals normal sinus rhythm, rate 87, LVH. Interpretation : Abnormal EKG Imaging Results: Imaging Impressions Head CT 02/20/18 16:59 Impression: 1. Left frontal lobe old cortical infarct or old posttraumatic encephalomalacia. 2. No acute hemorrhage, hydrocephalus, or mass effect. 3. Cerebrovascular atherosclerosis. 4. No definite acute infarct. 5. Pounds cerebral atrophy. 6. Moderate microvascular ischemic gliosis. 7. Consider MRI of the brain, if there is continued clinical concern. Findings and recommendations discussed with Emergency Department physician, DEX LUX at 17:18 hour, 02/20/2018. Final report concurs with initial preliminary interpretation. ED Course/Re-evaluation: This patient presents with expressive aphasia. A stroke alert was called on patient arrival. Noncontrast CT scan of the brain reveals no acute hemorrhage or acute infarct. She was seen by telemedicine, Dr. Pimentel, and the expressive aphasia was clearly resolving during his exam. She is not a tPA candidate at this point. We will proceed with CTA of the neck and brain. 5:45 p.m.-speech is almost completely fluent now. 6:30 p.m.-normal speech, neurologic exam is normal. 7:00 p.m.-CTA results discussed with the patient and her . Will admit for observation after TIA. The hospitalist service was consulted for admission. Differential Diagnosis: Differential diagnosis includes though is not limited to cardiac dysrhythmia, CVA, TIA, GI bleed, sepsis, hypoglycemia. - Data Points Laboratory Results: Laboratory Results 02/20/18 16:55 02/20/18 16:55 02/20/18 02/20/18 02/20/18 17:27 17:04 17:01 WBC RBC Hgb POC Hgb 16.0 gm/dL gm/dL (12.6-16.3) Hct POC Hct 47 % % (38-47) MCV MCH MCHC RDW Plt Count MPV Neut % (Auto) Lymph % (Auto) Swisher % (Auto) Eos % (Auto) Baso % (Auto) Nucleat RBC Rel Count Absolute Neuts (auto) Absolute Lymphs (auto) Absolute Monos (auto) Absolute Eos (auto) Absolute Basos (auto) Absolute Nucleated RBC Immature Gran % Immature Gran # POC Sodium 142 mEq/L mEq/L (135-145) Sodium POC Potassium 3.7 mEq/L mEq/L (3.3-5.0) Potassium POC Chloride 106 mEq/L mEq/L (97-110) Chloride Carbon Dioxide Anion Gap POC BUN 25 mg/dL H mg/dL (7-23) BUN Creatinine POC Creatinine 0.6 mg/dL mg/dL (0.6-1.0) Estimated GFR Glucose POC Glucose 99 mg/dL mg/dL (70-100) Calcium POC Troponin I 0.01 ng/mL ng/mL 0.00 ng/mL ng/mL (0.00-0.08) (0.00-0.08) 02/20/18 02/20/18 16:55 16:55 WBC 8.68 10^3/uL 10^3/uL (3.80-9.50) RBC 4.89 10^6/uL 10^6/uL (4.18-5.33) Hgb 15.8 g/dL g/dL (12.6-16.3) POC Hgb Hct 46.5 % % (38.0-47.0) POC Hct MCV 95.1 fL fL (81.5-99.8) MCH 32.3 pg pg (27.9-34.1) MCHC 34.0 g/dL g/dL (32.4-36.7) RDW 13.9 % % (11.5-15.2) Plt Count 238 10^3/uL 10^3/uL (150-400) MPV 10.4 fL fL (8.7-11.7) Neut % (Auto) 73.7 % % (39.3-74.2) Lymph % (Auto) 14.6 % L % (15.0-45.0) Swisher % (Auto) 9.8 % % (4.5-13.0) Eos % (Auto) 0.2 % L % (0.6-7.6) Baso % (Auto) 0.5 % % (0.3-1.7) Nucleat RBC Rel Count 0.0 % % (0.0-0.2) Absolute Neuts (auto) 6.40 10^3/uL 10^3/uL (1.70-6.50) Absolute Lymphs (auto) 1.27 10^3/uL 10^3/uL (1.00-3.00) Absolute Monos (auto) 0.85 10^3/uL H 10^3/uL (0.30-0.80) Absolute Eos (auto) 0.02 10^3/uL L 10^3/uL (0.03-0.40) Absolute Basos (auto) 0.04 10^3/uL 10^3/uL (0.02-0.10) Absolute Nucleated RBC 0.00 10^3/uL 10^3/uL (0-0.01) Immature Gran % 1.2 % H % (0.0-1.1) Immature Gran # 0.10 10^3/uL 10^3/uL (0.00-0.10) POC Sodium Sodium 140 mEq/L mEq/L (135-145) POC Potassium Potassium 3.9 mEq/L mEq/L (3.3-5.0) POC Chloride Chloride 104 mEq/L mEq/L (97-110) Carbon Dioxide 28 mEq/l mEq/l (22-31) Anion Gap 8 mEq/L mEq/L (6-14) POC BUN BUN 27 mg/dL H mg/dL (7-23) Creatinine 0.7 mg/dL mg/dL (0.6-1.0) POC Creatinine Estimated GFR > 60 Glucose 97 mg/dL mg/dL (70-100) POC Glucose Calcium 10.2 mg/dL mg/dL (8.5-10.4) POC Troponin I Point of Care Test Results: Chemistry 02/20/18 02/20/18 02/20/18 17:27 17:04 17:01 POC Sodium 142 mEq/L mEq/L (135-145) POC Potassium 3.7 mEq/L mEq/L (3.3-5.0) POC Chloride 106 mEq/L mEq/L (97-110) POC BUN 25 mg/dL H mg/dL (7-23) POC Creatinine 0.6 mg/dL mg/dL (0.6-1.0) POC Glucose 99 mg/dL mg/dL (70-100) POC Troponin I 0.01 ng/mL ng/mL 0.00 ng/mL ng/mL (0.00-0.08) (0.00-0.08) ISTAT H&H 02/20/18 17:01 POC Hgb 16.0 gm/dL gm/dL (12.6-16.3) POC Hct 47 % % (38-47) Departure - Departure Clinical Impression: Transient cerebral ischemia Qualifiers: Transient cerebral ischemia type: unspecified Qualified Code(s): G45.9 - Transient cerebral ischemic attack, unspecified Condition: Fair Referrals: Mario Miranda MD [Primary Care Provider] - As per Instructions
[2018-02-20] MEDS ORDERED: ACETAMINOPHEN 325 MG TAB PO PRN (19:27)
[2018-02-20] MEDS ORDERED: ONDANSETRON DISINTEGRATING 4 MG TAB PO PRN (19:27)
[2018-02-20] MEDS ORDERED: ONDANSETRON 4 MG/2 ML VIAL IVP PRN (19:27)
[2018-02-21] MEDS ORDERED: AZITHROMYCIN 250 MG TAB PO SCH (00:15)
[2018-02-21] MEDS ORDERED: ROSUVASTATIN CALCIUM 10 MG TAB PO SCH (00:15)
[2018-02-21] MEDS: ESTROGENS,CONJUGATED 0.625 MG TAB PO SCH ×2 (00:42→01:34)
[2018-02-21] MEDS: predniSONE 5 MG TAB PO SCH ×2 (00:42→10:09)
--- NOTE | 2018-02-21 02:45 | PDGENHP ---
History and Physical - Chief Complaint aphasia - History of Present Illness Source-patient provides history appears reliable. EMR was reviewed and case discussed with accepting hospitalist. HPI - this is a very pleasant 72-year-old female with past medical history significant for history of CVA and TIAs, HLD, sarcoidosis on chronic steroids, bronchiectasis, hypothyroidism, sleep apnea who presents emergency department today she approximately 45 min after sudden onset of word-finding difficulties and inability to communicate with her phone. Patient had been spending some time with her grandson this afternoon at approximately 330 or 4:00 p.m. patient had sudden onset of her symptoms. Her previous strokes and TIAs have all been similar to today's event. Patient denies any associated focal deficits during this time. She does recall having a little bit of headache, and very mild lightheadedness. She did not have any syncopal presyncopal episodes. She recalls having trouble finding her words and then responding in gibberish. She also reports she tried to utilize her cell phone to communicate but she was not able to coordinate this at all during these 45 min. Patient denies any focal deficits, numbness or tingling or difficulty swallowing. Patient was admitted 07/02/2017 and was noted to have significant left-sided carotid artery stenosis for which she underwent a subclavian carotid bypass and did well postoperatively. Patient has remained on Plavix and statin therapy. History Information - Allergies/Home Medication List Allergies/Adverse Reactions: hydroxychloroquine sulfate [From Plaquenil] Allergy (Severe, Verified 02/20/18 16:46) sz Penicillins Allergy (Mild, Verified 02/20/18 16:46) itchy rash Home Medications: Clopidogrel Bisulfate [Plavix (*)] 75 mg PO DAILY 05/02/16 [Last Taken 02/20/18] Multivitamins [Multivitamin (*)] 1 each PO HS 01/13/17 [Last Taken 07/01/17] Rosuvastatin Calcium [Crestor 5mg] 5 mg PO HS 01/13/17 [Last Taken 02/19/18] predniSONE 5 mg PO BID 01/13/17 [Last Taken 02/20/18 09:00] Azithromycin 250 mg PO HS 07/02/17 [Last Taken 02/19/18] Estrogens,Conjugated [Premarin 0.625 MG (*)] 0.625 mg PO HS 07/02/17 [Last Taken 02/19/18] Calcium Carb W/Vit D [Calcium Carb W/Vit D 500/200 (*)] 500 mg PO DAILY [Last Taken Unknown] Famotidine [Pepcid 20 MG (*)] 20 mg PO DAILY 02/20/18 [Last Taken Unknown] Nicotine [Nicotrol] 10 mg IH DAILY PRN 02/20/18 [Last Taken Unknown] amLODIPine BESYLATE [Norvasc 5 mg (*)] 2.5 mg PO DAILY 02/20/18 [Last Taken Unknown] I have personally reviewed and updated: family history, medical history, social history, surgical history - Past Medical History Additional medical history: History of left parietal CVA and right cerebellar infarct, HLD, left vertebral artery occlusion, history of left carotid artery stenosis status post subclavian carotid bypass, pneumonia, sarcoidosis, bronchiectasis, hypothyroidism, central and obstructive sleep apnea on O2 at HS - Surgical History Additional surgical history: Subclavicular carotid bypass - Family History Additional family history: Diabetes type 2. Mother with history of multiple TIA - Social History Smoking Status: Former smoker Alcohol Use: Rarely Drug Use: None Additional social history: Patient is lives with her who is a physician. They have a son who lives locally with patient's grandchildren support. She rarely has any alcohol intake she no longer smokes and does not use any illicit drugs or marijuana. Cor status-full Review of Systems Review of Systems: ROS: 10pt was reviewed & negative except for what was stated in HPI & below Constitutional: Reports: no symptoms. Denies: chills, fever EENMT: Reports: blurred vision. Denies: nose congestion, sore throat Cardiac: Reports: lightheadedness. Denies: chest pain, palpitations, syncope Respiratory: Reports: no symptoms Gastrointestinal: Reports: no symptoms Genitourinary: Reports: no symptoms Muscolosketal: Reports: no symptoms. Denies: muscle pain Skin: Reports: no symptoms Neurological: Reports: headache. Denies: numbness, tingling, tremors, weakness Hematologic/Lymphatic: Reports: easy bruising (Particularly on her hands patient attributes to her Plavix.) Physical Exam Physical Exam: Selected Entries 02/20/18 16:44 Blood Pressure Automatic Method Heart Rate 94 Respiratory 18 Rate O2 Sat (%) 93 Temperature (C) 36.6 C Blood Pressure 170/113 H Mean Arterial 132 H Pressure (MAP) O2 Delivery Room Air Mode Temperature Oral Source Temp Pulse Resp BP Pulse Ox 36.5 C 75 18 156/95 H 94 02/20/18 23:38 02/20/18 23:38 02/20/18 23:38 02/20/18 23:38 02/20/18 23:38 Constitutional: no apparent distress, appears nourished, other (NAD. Very pleasant adult female is resting quietly in bed. She is in good spirits.) Eyes: PERRL, anicteric sclera, EOMI, other (No nystagmus), No scleral injection Ears, Nose, Mouth, Throat: moist mucous membranes, other (No nasal discharge), No poor dentition Cardiovascular: regular rate and rhythym, no murmur, rub, or gallop, pulses symmetric bilaterally, No edema Peripheral Pulses: 2+: dorsalis-pedis (R), dorsalis-pedis (L) Respiratory: no respiratory distress, no rales or rhonchi, clear to auscultation , No respiratory distress Gastrointestinal: normoactive bowel sounds, soft, non-tender abdomen, no palpable masses, No guarding, No distension Genitourinary: no bladder tenderness, No poole in urethra Skin: warm, normal color Musculoskeletal: full muscle strength (Strength overall normal. Patient left hand vascular specialists just slightly less than the right but she also has monitors in place.) , No generalized weakness Neurologic: AAOx3, sensation intact bilaterally, facial droop, other (Speech is clear. Patient has very rare recall issues for specific terms. Overall does not appear to have any stutter in her speech flow.), No CN II-XII Intact Psychiatric: interacting appropriately, not encephalopathic, thought process linear, anxious, No poor insight, No poor judgement, No poor memory Lymph, Heme, Immunologic: other (Patient with some bruising in various stages of healing on her hands and distal arms bilaterally.) Lab Data & Imaging Review 02/20/18 16:55 02/20/18 16:55 WBC 8.68 10^3/uL (3.80-9.50) 02/20/18 16:55 RBC 4.89 10^6/uL (4.18-5.33) 02/20/18 16:55 Hgb 15.8 g/dL (12.6-16.3) 02/20/18 16:55 POC Hgb 16.0 gm/dL (12.6-16.3) 02/20/18 17:01 Hct 46.5 % (38.0-47.0) 02/20/18 16:55 POC Hct 47 % (38-47) 02/20/18 17:01 MCV 95.1 fL (81.5-99.8) 02/20/18 16:55 MCH 32.3 pg (27.9-34.1) 02/20/18 16:55 MCHC 34.0 g/dL (32.4-36.7) 02/20/18 16:55 RDW 13.9 % (11.5-15.2) 02/20/18 16:55 Plt Count 238 10^3/uL (150-400) 02/20/18 16:55 MPV 10.4 fL (8.7-11.7) 02/20/18 16:55 Neut % (Auto) 73.7 % (39.3-74.2) 02/20/18 16:55 Lymph % (Auto) 14.6 % (15.0-45.0) L 02/20/18 16:55 [place] % (Auto) 9.8 % (4.5-13.0) 02/20/18 16:55 Eos % (Auto) 0.2 % (0.6-7.6) L 02/20/18 16:55 Baso % (Auto) 0.5 % (0.3-1.7) 02/20/18 16:55 Nucleat RBC Rel Count 0.0 % (0.0-0.2) 02/20/18 16:55 Absolute Neuts (auto) 6.40 10^3/uL (1.70-6.50) 02/20/18 16:55 Absolute Lymphs (auto) 1.27 10^3/uL (1.00-3.00) 02/20/18 16:55 Absolute Monos (auto) 0.85 10^3/uL (0.30-0.80) H 02/20/18 16:55 Absolute Eos (auto) 0.02 10^3/uL (0.03-0.40) L 02/20/18 16:55 Absolute Basos (auto) 0.04 10^3/uL (0.02-0.10) 02/20/18 16:55 Absolute Nucleated RBC 0.00 10^3/uL (0-0.01) 02/20/18 16:55 Immature Gran % 1.2 % (0.0-1.1) H 02/20/18 16:55 Immature Gran # 0.10 10^3/uL (0.00-0.10) 02/20/18 16:55 POC Sodium 142 mEq/L (135-145) 02/20/18 17:01 Sodium 140 mEq/L (135-145) 02/20/18 16:55 POC Potassium 3.7 mEq/L (3.3-5.0) 02/20/18 17:01 Potassium 3.9 mEq/L (3.3-5.0) 02/20/18 16:55 POC Chloride 106 mEq/L (97-110) 02/20/18 17:01 Chloride 104 mEq/L (97-110) 02/20/18 16:55 Carbon Dioxide 28 mEq/l (22-31) 02/20/18 16:55 Anion Gap 8 mEq/L (6-14) 02/20/18 16:55 POC BUN 25 mg/dL (7-23) H 02/20/18 17:01 BUN 27 mg/dL (7-23) H 02/20/18 16:55 Creatinine 0.7 mg/dL (0.6-1.0) 02/20/18 16:55 POC Creatinine 0.6 mg/dL (0.6-1.0) 02/20/18 17:01 Estimated GFR > 60 02/20/18 16:55 Glucose 97 mg/dL (70-100) 02/20/18 16:55 POC Glucose 99 mg/dL (70-100) 02/20/18 17:01 Calcium 10.2 mg/dL (8.5-10.4) 02/20/18 16:55 POC Troponin I 0.01 ng/mL (0.00-0.08) 02/20/18 17:27 Imaging Review: CT Brain (Without Contrast) at 1705 hours History: stroke alert , expressive aphasia. Comparison: June 2017 MRI brain. Technique: Axial computed tomographic images of the brain without contrast. Dose reduction techniques were utilized. Findings: Cortical encephalomalacia involving the anterior inferior lateral aspect of the left frontal lobe from old trauma or cortical infarct measuring 2 cm. Ventricles, cisterns, and sulci are widened consistent with atrophy. No hydrocephalus, midline shift/herniation , or epidural/ subdural hematomas. No acute intraparenchymal hemorrhage or mass effect. Severe bilateral ICA Cerebrovascular atherosclerosis. Hypodensities in the white matter of bilateral cerebral hemispheres. Bone windows demonstrate no displaced fractures. Paranasal sinuses and mastoid air cells are clear. Impression: 1. Left frontal lobe old cortical infarct or old posttraumatic encephalomalacia. 2. No acute hemorrhage, hydrocephalus, or mass effect. 3. Cerebrovascular atherosclerosis. 4. No definite acute infarct. 5. Pounds cerebral atrophy. 6. Moderate microvascular ischemic gliosis. 7. Consider MRI of the brain, if there is continued clinical concern. Findings and recommendations discussed with Emergency Department physician, GENO VAUGHN at 17: 18 hour, 02/20/2018. Final report concurs with initial preliminary interpretation. Dictated By: Harpreet Resendiz CT Angiography of the Neck With Contrast Enhancement and Multiplanar Reconstructions at 1806 hours History: Expressive aphasia. Technique: 1.25 mm axial multidetector helical CT imaging was performed through the brain and neck while 85 mL Isovue-370 were injected intravenously without complication. The images were then transferred to an independent workstation where multiplanar and three- dimensional reconstructions were performed by the interpreting physician and reviewed at multiple windows. Dose reduction techniques were utilized. CTA Findings: Mild to moderate calcified plaque in the aortic arch without significant stenosis of the origin of the great vessels. Moderate atherosclerotic plaque in bilateral carotid bulbs, left greater than right resulting in approximately 20% stenosis of the proximal left internal carotid artery without significant stenosis of the right internal carotid artery. No carotid occlusion or dissection. No intraluminal thrombi. Patent normal right vertebral artery which is dominant throughout and feeds the majority of the basilar artery without occlusion or dissection. Very tiny intermittently patent left vertebral artery without complete occlusion. Venous collaterals in the posterior paraspinal regions. No significant neck adenopathy. Centrilobular emphysema at the lung apices. Impression: 1. Mild to moderate calcified plaque in bilateral carotid bulbs with only mild stenosis in the left internal carotid artery. 2. No significant stenosis of the right internal carotid artery. 3. Patent right vertebral artery and vertebrobasilar system. 4. Very tiny intermittently patent left vertebral artery. Measurement of carotid stenosis is based on the residual internal carotid diameter with [place] Symptomatic Carotid Endarterectomy Trial (NASCET) based stenosis levels. CT Angiography of the Brain Clinical Indications: Expressive aphasia. Technique: CT angiogram of the brain and neck was performed with the uneventful intravenous administration of 85 mL Isovue-370 contrast. Multiplanar reconstructions including 3D reconstructions performed and evaluated on [employer] workstation in order to better evaluate the [place] vessels. Images were manipulated by the radiologist at the computer workstation. Dose reduction techniques were utilized. Findings: Major vessels of the [place] are adequately displayed, demonstrating cerebrovascular moderate atherosclerotic plaque in bilateral cavernous and supraclinoid internal carotid arteries without complete occlusion. No evidence of aneurysm, vascular malformation, or occlusion. Bilateral cavernous internal carotid arteries and vertebrobasilar system demonstrates no evidence of flow-limiting stenosis, aneurysm, occlusion, or dissection. Superior sagittal sinus, transverse sinuses, and major veins demonstrate no evidence of intraluminal thrombi. Images of the brain demonstrate no enhancing lesions. Left frontal lobe old infarct. Impression: 1. Moderate cerebrovascular atherosclerosis in bilateral cavernous and supraclinoid internal carotid arteries. 2. However, no evidence of intraluminal thrombi, complete occlusion, aneurysm, or vascular malformation of the [place] vessels. 3. Left frontal lobe old infarct or posttraumatic encephalomalacia. 4. No definite enhancing lesions. Findings and recommendations discussed with Emergency Department physician, Geno Vaughn at 1840 hour, 02/20/2018. Final report concurs with initial preliminary interpretation. Dictated By: Harpreet Resendiz MRI of the Brain (Without Contrast) Clinical Indication: Expressive aphasia, stroke alert. Technique: T1-weighted images were acquired axially and sagittally from the foramen magnum to the vertex. Axial fast inversion recovery, fast T2-weighted, SWI, and diffusion- weighted axial images were obtained, without contrast. Comparison: CT brain from today. MRI brain June 2017. Findings: Cortical encephalomalacia involving the anteroinferior lateral left of the left frontal lobe, similar to the previous study, consistent with old infarct or old posttraumatic encephalomalacia. The ventricles, cisterns, and sulci are widened consistent with atrophy. No hydrocephalus, midline shift, herniation, or epidural/subdural hematomas. No intracranial hemorrhage or masses. Diffusion weighted sequence demonstrates no acute infarct. Cerebellar tonsils are in normal position. Pituitary gland is normal in size. Normal signal flow void in the superior sagittal sinus, basilar artery, and bilateral internal carotid arteries indicating patency. Paranasal sinuses and mastoid air cells are clear. Scattered hyperintense T2/FLAIR signal foci throughout bilateral cerebral white matter and brainstem. Small old linear right cerebellar infarct again noted. Impression: 1. Mild cerebral atrophy and moderate microvascular ischemic gliosis. 2. No acute infarct, acute hemorrhage, hydrocephalus, mass effect, or herniation. 3. Old left frontal cortical infarct versus posttraumatic encephalomalacia. 4. Old small linear infarct right cerebellar hemisphere. Dictated By: Harpreet Resendiz EKG additional interpertation: NSR Assessment & Plan Assessment: 72-year-old female past medical history significant for CVA and TIAs, sarcoidosis on chronic steroid treatment, hypothyroidism, MADISYN who presents to the emergency department today in with complaints of aphasia. #Transient cerebral ischemia (Acute) - patient's symptoms rapidly resolving shortly after arrival. CT head, CTA head and neck and MRI all consistent with patient's previous injuries and do not demonstrate any acute findings. Patient admitted to Neurology floor for continued neuro checks. She will continue on her Plavix. Neurology has been consulted for the morning. TIA protocol in place. # aphasia - symptoms appear to be nearly resolved. Patient does have a occasional stutter of word recall but majority of her symptoms have resolved and continue with plan as noted above. Chronic medical issues # HLD - lipid panel in AM. continue statin. patient declines hospital formulary of lipitor. will have bring in AM. # hypothyroidism - continue replacement. # sarcoidosis - resume patient's steroids. # bronchiectasis - condition stable. Continue azithromycin. # central/obstructive sleep apnea - continue O2 supplementation at HS FEN - patient passed swallow. Advanced diet to cardiac low-fat. Electrolytes are adequate at this time not require replacement. PPX-patient currently on Plavix. SCDs ordered. No anticoagulation at this time. Encourage mobilization. Anticipate short hospital stay. Cor status-full Disposition-patient admitted to observation status on the neurology floor. Anticipate less than 2 midnight stay pending additional recommendations from Neurology service.
[2018-02-21] MEDS ORDERED: amLODIPine BESYLATE 5 MG TAB PO SCH (09:00)
[2018-02-21] MEDS ORDERED: FAMOTIDINE 20 MG TAB PO SCH (09:00)
[2018-02-21] MEDS ORDERED: CLOPIDOGREL BISULFATE 75 MG TAB PO SCH (09:00)
--- NOTE | 2018-02-21 12:17 | NEUROPROG ---
Assessment: HOSPITAL NEUROLOGY CONSULT REQUESTING: Soniya Finnegan MD REASON: TIA HPI: 72 year old woman with a history of HTN, HLD, MADISYN, prior strokes/TIAs, left [id number] bypass who presented to the ED yesterday with a recurrent episode of expressive aphasia. She is well known to me from clinic and prior hospitalizations. She states at [id number] she was with her grandson and had an episode of expressive aphasia manifest as inability to get her words out - words produced were nonsensical. She had no weakness, sensory changes, vision change, gait change. Episode has been the same as her prior two TIAs. She has a history of a left frontal cortically-based infarct for which she underwent left [id number] bypass for critical stenosis of the CCA. She has been maintained on clopidogrel and rosuvastatin. She has experienced challenges with labile BP and is working with her PCP and [facility] on getting this under control. She has been compliant with medication and CPAP. She is admitted under observation now for evaluation of TIA. ROS: As per the HPI, otherwise a complete 12 point ROS was performed and is negative ALLERGIES AND MEDS: As recorded in the EMR - reviewed and reconciled PFSH: As per the intake H&P by Dr. Finnegan from yesterday EXAM: VS reviewed in EMR GEN: WDWN laying in NAD HEENT: NCAT, sclera anicteric, conjunctiva not injected, MMM, oropharynx clear, no scalp tenderness NECK: supple, nontender, no meningismus CV: RRR s1 s2 wo m/r/c/g. Carotid pulses 2+ wo bruit NEURO: MS: awake, alert, oriented to all spheres. Speech nondysarthric. No language disturbance. Follows commands. Attends to both sides. Recent/remote memory grossly intact. Mood euthymic. Good fund of knowledge. CN: pupils 3mm round and reactive. Unable to visualize fundi. VFF. Primary gaze centered. Full ocular motility. Facial sensation preserved. Face symmetric. Hearing grossly intact to finger rub. Palatoglossal movements intact. Shoulder shrug and head turn strong. MOTOR: normal bulk/tone. No adventitial movements. Full power throughout. SENSORY: symmetric/intact LT/PP in extremities. No extinction. COORD: no ataxia FN/HS. Lauren preserved. Romberg neg. REFLEX: plantars down. No clonus. DTRs trace. GAIT: deferred to PT safety eval DATA REVIEW: Labs reviewed in EMR LDL 77 TTE pending PERSONALLY INTERPRETED RESULTS AND DATA: MRI brain wo - chronic left frontal infarct and right cerebellar infarct, nothing acute CTA head/neck - no hemodynamically significant stenoses IMPRESSION AND RECOMMENDATIONS: // POSSIBLE TIA Patient with recurrent/stereotyped episode of aphasia. No evidence on end- organ damage on MRI. May have been a recurrent TIA, but also consider recrudescence of her prior stroke deficits from left frontal infarct. Less likely, but possible, is a focal seizure from her prior infarct. - add ASA 81mg daily - increase rosuvastatin for goal LDL < 70 - ongoing BP optimization with goal normotension - cont CPAP nightly - follow up Dr. Anton in clinic in 2-4 weeks for consideration of EEG - sign off - please recall if any TTE abnormalities need addressed Objective: Vital Signs Temp Pulse Resp BP Pulse Ox 36.6 C 75 23 H 123/94 H 95 02/21/18 11:49 02/21/18 11:49 02/21/18 11:49 02/21/18 11:49 02/21/18 11:49 Allergies/Adverse Reactions: hydroxychloroquine sulfate [From Plaquenil] Allergy (Severe, Verified 02/20/18 16:46) sz Penicillins Allergy (Mild, Verified 02/20/18 16:46) itchy rash
[2018-02-21 15:21] VITALS: BP 133/80
--- NOTE | 2018-02-21 15:27 | ASMTCMCOM ---
CM Note CM Note Notes: Pt has been admitted with aphasia and possible TIA. She has a hx of CVA, TIA and sarcoidosis. Neuro consulting. She lives with her in [place]. Pt will follow up with neurology in next 2-4 weeks. Anticipate d/c home with no CM needs. Date Signed: 02/21/2018 03:27 PM Electronically Signed By:WILFREDO Vo
--- NOTE | 2018-02-21 15:55 | PDDCSUM ---
Discharge Summary Discharge Summary: DISCHARGE DIAGNOSES: * transient aphasia episode on the day of admission * suspect TIA, significantly less likely to be seizure at site of former stroke * hypercholesterolemia on Crestor current LDL 77 * chronic hypertension on medications currently controlled during this hospital stay * on chronic Plavix at home at this time CONSULTANTS: Dr. John Ferro PROCEDURES: MRI of brain CT scan of head CT angio of head and neck HOSPITAL COURSE SUMMARY: This patient who has a history of previous stroke manifest as a facial that resolved, followed by a 2nd episode of a facial last year comes in with her 3rd episode of transient aphasia on the day of admission, currently resolved completely. There been no other neurologic symptoms no headaches. She has had no fevers, no palpitations, no changes in medication. She has a prior history of left subclavian to common carotid artery bypass done here due to a subtotal ostial carotid artery stenosis and prior vertebral occlusion due to a dissection. This was in July of 2017. The patient was observed here overnight with no recurrence symptoms and she has a normal neurologic exam and feels normal at this time. The vital signs have all been good and she has been in sinus rhythm on telemetry without AFib. Imaging studies showed her bypass to be wide open and no other new vascular lesions. There is no evidence of an acute stroke on MR and there is no evidence of bleeding. Her symptoms were very localized and resolved upon arrival so there was no indication to consider tPA. Her LDL is at 77. Her blood pressures have been good here. It is doubtful that she has seizure causing these episodes but considered a low likelihood possibility that these recurrent episodes of aphasia represent localize seizure from the original stroke. This can be followed up in neurologic clinic and if they have concerns EEG could be done. At this point is recommended to add aspirin 81 mg to her daily Plavix, increase Crestor to 10 mg daily and trying get her LDL less than 70. She is warned to watch for specific side effects of these medicines and report any to doctors Ruth and Desean. At this point she is stable for discharge to home. All of her questions have been answered. She will follow up with primary care neurology clinics in the near future. PENDING TEST RESULTS: None MEDICATION CHANGES: Increase Crestor to 10 mg daily, plan on follow-up lipid panel in 6 weeks or thereabouts Added aspirin 81 mg daily FOLLOW-UP PLAN: Dr. Anton 2-[address] Miranda 2-4 weeks Greater than 35 minutes bedside and care coordination time today
--- NOTE | 2018-02-21 15:57 | ASDISCHSUM ---
Discharge Information Plan Status:Home with No Needs Medically Cleared to Leave:02/21/2018 Discharge Date:02/21/2018 CM D/C Disposition:Home, Routine, Self-Care ADT D/C Disposition:Home, Routine, Self-Care Projected Discharge Date:02/21/2018 Transportation at D/C:Family Discharge Delay Reason: Follow-Up Date:02/21/2018 Discharge Slot: Final Diagnosis: Placement Information Patient Contact Information Contact Name:MAIA Relationship:Arnold Address:[address] City:[place] Alternate Phone: [facility]/Zip Code:[place] [address] Email: Financial Information Financial Class:Medicare Primary Plan Desc:MEDICARE OUTPATIENT Primary Plan Number:[id number] Secondary Plan Desc:[employer]/MDR SUPPLEMENT Secondary Plan Number:[id number] Assessment Information LACE LACE Length of stay for Answers: Less than 1 day current admission Acuity / Level of Answers: No Care: Did the patient have an inpatient admission? Comorbidities - select Answers: Cerebrovascular disease all that apply (CVA, TIA, aneurysms, vasc ular dementia) Other Notes: sarcoidosis # of Emergency department Answers: 1-2 visits in the last 6 months Score: 3 Date Signed: 02/21/2018 03:55 PM Electronically Signed By:WILFREDO Vo [facility] CM Progress Note CM Note CM Note Notes: Pt has been admitted with aphasia and possible TIA. She has a hx of CVA, TIA and sarcoidosis. Neuro consulting. She lives with her in [place]. Pt will follow up with neurology in next 2-4 weeks. Anticipate d/c home with no CM needs. Date Signed: 02/21/2018 03:27 PM Electronically Signed By:WILFREDO Vo Intervention Information
--- NOTE | 2018-02-22 06:57 | ECHO ---
[email or web address] [address] [address] Main: [phone] Fax: Transthoracic Echocardiogram Name: Kasey LE MR#: [id number] Study Date: 02/21/2018 Study Time: 11:39 AM Date of : 1945 Age: 72 year(s) Height: 162.6 cm (64 in.) Weight: 65.77 kg (145 lb.) BSA: 1.71 m2 Gender: Female Examination: Echo Indication: TIA Image Quality: Fair Contrast: Requested by: Yvan Lewis BP: 128 mmHg/74 mmHg Heart Rate: Rhythm: Indication: TIA Procedure Staff Yarding Engineer: Yajaira Carter [facility] Reading Physician: Ganga Conner MD Requesting Provider: Conclusions: Normal global systolic LV function. The ejection fraction is estimated to be 60-65 %. An agitated saline study was performed and was negative for intracardiac shunting. Mild mitral valve regurgitation is present. Borderline anterior mitral leaflet prolapse.. Mild tricuspid regurgitation is present. Trivial anterior pericardial effusion. Based on mild mitral regurgitation, a repeat echo may be considered in 3 years unless there is a change in clinical status. Measurements: Chambers Valvular Assessment AV/MV Valvular Assessment TV/PV Normal Normal Normal Name Value Range Name Value Range Name Value Range Ao Kisha (MM): 3.6 cm (2.2 cm-3.7 AV Vmax: 83.40 m/s (1 m/s-1.7 TR Vmax: 2.28 mm/s ( - ) cm) m/s) TR PGmax: 21 mmHg ( - ) IVSd (2D): 0.9 cm (0.6 cm-1.1 AV meanP mmHg ( - ) syst. PAP: 26 mmHg ( - ) cm) MV E Vmax: 0.34 m/s ( - ) LVDd (2D): 4.2 cm (3.9 cm-5.3 MV A Vmax: 0.81 m/s ( - ) cm) MV E/A: 0.42 ( - ) LVDs (2D): 2.8 cm (2.1 cm-4 cm) LVPWd (2D): 0.8 cm ( - ) LVOTd 2.1 cm 2.1 cm mm LVEF (MOD4): 66 % (>=55 %) EF Range: 60-65 % Continued Measurements: Chambers Valvular Assessment AV/MV Valvular Assessment TV/PV Patient: Kasey LE Study Date: 02/21/2018 Page 1 of 2 11:39 AM Name Value Name Value Name Value LADs: 3.2 cm MV E' Septal: 0.05 m/s CVP (est.): 5 mmHg LADs Lon.0 cm MV E/E' Septal: 6.50 LA Area: 19.9 cm2 MV E/E' Lateral: 7.80 Additional Vessels Name Value Ao Ascendin.7 cm Findings: Left Ventricle: Normal size left ventricle. No LV hypertrophy. Normal global systolic LV function. The ejection fraction is estimated to be 60-65 %. No regional wall motion abnormality. Normal diastolic LV function. Right Ventricle: Normal size right ventricle. Left Atrium: The left atrium is normal in size. An agitated saline study was performed and was negative for intracardiac shunting. Right Atrium: The right atrium is normal in size. Mitral Valve: Mild mitral valve regurgitation is present. Borderline anterior mitral leaflet prolapse.. Aortic Valve: The aortic valve is normal in appearance and function. The aortic valve is tri-leaflet. There is no aortic valve regurgitation. Tricuspid Valve: The tricuspid valve is normal in appearance and function. Mild tricuspid regurgitation is present. Pulmonic Valve: The pulmonic valve is normal in appearance and function. Trivial pulmonic valve regurgitation. Aorta: The aorta is normal. Pericardium: Trivial anterior pericardial effusion. (No Signature Object) Patient: Kasey LE Study Date: 02/21/2018 Page 2 of 2 11:39 AM [id number]
--- NOTE | 2018-02-23 10:41 | CPEKG ---
Test Reason : OPEN Blood Pressure : / mmHG Vent. Rate : 087 BPM Atrial Rate : 087 BPM P-R Int : 136 ms QRS Dur : 089 ms QT Int : 381 ms P-R-T Axes : 047 -12 010 degrees QTc Int : 459 ms Sinus rhythm Probable left atrial enlargement Left ventricular hypertrophy Confirmed by Yvan Hua ([id number]) on 02/23/2018 10:40:35 AM Referred By: Confirmed By:Yvan Hua
== END 2018-02-21 16:41 | disposition home or self-care (01) ==
LOC: F3N 23:17
PROVIDERS: ADMIT Internal Medicine; ATTEND Internal Medicine
DX: R47.01 Aphasia (principal); I77.9 Disorder of arteries and arterioles, unspecified; E78.00 Pure hypercholesterolemia, unspecified; I10 Essential (primary) hypertension; E03.9 Hypothyroidism, unspecified; D86.9 Sarcoidosis, unspecified; G47.31 Primary central sleep apnea; Z87.891 Personal history of nicotine dependence; Z86.73 Personal history of transient ischemic attack (TIA), and cerebral infarction without residual deficits; Z79.52 Long term (current) use of systemic steroids; Z79.02 Long term (current) use of antithrombotics/antiplatelets; Z95.828 Presence of other vascular implants and grafts; Z88.0 Allergy status to penicillin
CPT/HCPCS: 70450; 70496; 70498; 70551; 92523; 93005; 93306; 99285; G0378; G9162; G9163; G9164; J7512; Q9967; 82435-PO; 82565-PO; 82947-PO; 84132-PO; 84295-PO; 84484-PO; 84520-PO; 85014-PO

== ENCOUNTER → 2018-05-08 | Outpatient (CLI) | payer OTHER, MEDICARE | LOC: FIMAGING 11:18 | PROVIDERS: ATTEND Internal Medicine Critical Care Medicine | DX: R06.00 Dyspnea, unspecified (principal); J98.6 Disorders of diaphragm ==

== ENCOUNTER → 2018-07-24 | Outpatient (CLI) | payer OTHER, MEDICARE | LOC: FIMAGING 13:56 | PROVIDERS: ATTEND Internal Medicine Critical Care Medicine | DX: R06.00 Dyspnea, unspecified (principal); D86.9 Sarcoidosis, unspecified ==

== ENCOUNTER → 2018-07-31 | Outpatient (CLI) | payer OTHER, MEDICARE ==
[~2018-07-31] MED LIST changes: -IOPAMIDOL (ISOVUE 370) 100 ML BTL IV ONE; +IOPAMIDOL (ISOVUE-370) 150 ML BTL IV ONE
== END ==
LOC: FIMAGING 15:29
PROVIDERS: ATTEND Internal Medicine
DX: R91.8 Other nonspecific abnormal finding of lung field (principal); R06.02 Shortness of breath; R09.02 Hypoxemia; J43.2 Centrilobular emphysema; J98.6 Disorders of diaphragm; J98.11 Atelectasis
CPT/HCPCS: 71275; Q9967